=== PATIENT | male | born 1950 | race Caucasian/White ===

== ENCOUNTER 2016-09-08 10:55 | Emergency (ER) | payer BC ==
[2016-09-08 12:10] VITALS: BP 160/95
--- NOTE | 2016-09-08 12:53 | RAD ---
HISTORY: Trauma, left wrist pain, fall on outstretched hand COMPARISONS: None VIEWS: 3, Frontal, lateral, and oblique views of the left wrist FINDINGS: BONE DENSITY: Normal. BONES: There is a transverse fracture of the distal radial metaphysis with dorsal angulation of approximately 40 degrees. JOINTS: There is no arthropathy. ALIGNMENT: There is no dislocation. SOFT TISSUES: Unremarkable. OTHER FINDINGS: None. IMPRESSION: DORSAL ANGULATED FRACTURE OF THE DISTAL RADIAL METAPHYSIS
--- NOTE | 2016-09-08 12:58 | UC ---
Hand/Wrist HPI - HPI Summary HPI Summary: FOOSH on the ice approx 1.5 hours ago, immediate pain and deformity in L wrist. Hx of fx with surgery in R wrist. 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 - History Of Current Complaint Chief Complaint: UCUpperExtremity Stated Complaint: LEFT WRIST INJURY- Time Seen by Provider: 09/08/16 12:14 Hx Obtained From: Patient ?: No Onset/Duration: Sudden Onset Severity Initially: Moderate Severity Currently: Moderate Pain Intensity: 7 Character Of Pain: Dull, Throbbing Aggravating Factor(s): Movement Alleviating: Rest, Elevation Associated Signs And Symptoms: Positive: Swelling Related History: Dominant Hand Right - Allergies/Home Medications Allergies/Adverse Reactions: Allergies Allergy/AdvReac Type Severity Reaction Status Date / Time No Known Allergies Allergy Verified 06/04/13 16:18 Home Medications: Home Medications Metoprolol Succinate XL TAB* [Toprol XL TAB*] 09/08/16 [History] PMH/Surg Hx/FS Hx/Imm Hx Endocrine History Of: Denies: Diabetes, Thyroid Disease Cardiovascular History Of: Reports: Cardiac Disorders, Hypertension Respiratory History Of: Denies: COPD, Asthma GI/ History Of: Denies: Ulcer - Surgical History Surgical History: Yes Surgery Procedure, Year, and Place: tonsilectomy - Family History Known Family History: Negative: Blood Disorder - Social History Lives: With Family Alcohol Use: Rare Substance Use Type: None Smoking Status (MU): Never Smoked Tobacco - Immunization History Most Recent Tetanus Shot: less then 7 yrs Review of Systems Constitutional: Negative Skin: Negative Eyes: Negative ENT: Negative Respiratory: Negative Cardiovascular: Negative Gastrointestinal: Negative Genitourinary: Negative Motor: Negative Neurovascular: Negative Musculoskeletal: Arthralgia, Decreased ROM - L wrist, Edema Neurological: Negative Psychological: Negative All Other Systems Reviewed And Are Negative: Yes Physical Exam Triage Information Reviewed: Yes Appearance: Well-Appearing, No Pain Distress, Well-Nourished Vital Signs: Initial Vital Signs Temp 97.7 F 09/08/16 12:05 Pulse 81 09/08/16 12:05 Resp 16 09/08/16 12:05 BP 160/95 09/08/16 12:05 Pulse Ox 95 09/08/16 12:05 Vital Signs Reviewed: Yes Eye Exam: Normal Eyes: Positive: Conjunctiva Clear ENT Exam: Normal ENT: Positive: Normal ENT inspection, Hearing grossly normal, Pharynx normal, TMs normal Dental Exam: Normal Neck exam: Normal Neck: Positive: Supple, Nontender, No Lymphadenopathy Respiratory Exam: Normal Respiratory: Positive: Chest non-tender, Lungs clear, Normal breath sounds, No respiratory distress, No accessory muscle use Cardiovascular Exam: Normal Cardiovascular: Positive: RRR, No Murmur Musculoskeletal Exam: Other - swelling, tenderness at L distal radius Musculoskeletal: Positive: ROM Limited @ - L wrist Psychological Exam: Normal Skin Exam: Normal Hand/Wrist Course/Dx - Differential Dx/Diagnosis Provider Diagnoses: L distal radius fracture with dorsal angulation - Physician Notifications Discussed Patient Care With: EMELYN Davenport at [facility]. [id number]: can send to office now Instructed by Provider To: Send To Office Now Discharge - Discharge Plan Condition: Stable Disposition: HOME Patient Education Materials: Wrist Fracture in Adults (ED) Referrals: Roger Jones MD [Medical Doctor] - Additional Instructions: Please go follow up with Dr. Jones now at [address] [place] [address].
== END 2016-09-08 13:27 | disposition home or self-care (01) ==
LOC: UCEAST 10:55
DX: S52.502A Unspecified fracture of the lower end of left radius, initial encounter for closed fracture (principal); W00.0XXA Fall on same level due to ice and snow, initial encounter; Y93.9 Activity, unspecified; Y92.9 Unspecified place or not applicable
CPT/HCPCS: 99213; G0463

== ENCOUNTER → 2016-09-14 | Day surgery (SDC) | payer BC ==
[~2016-09-14] MED LIST: Acetaminophen TAB* 325 MG PO PRN; Buffered Lidocaine 1% SYR 3ML* 3 ML/SYR SYRINGE INTRADERM ONE; Buffered Lidocaine 1% SYR 3ML* 3 ML/SYR SYRINGE ONE; Bupivacaine 0.25% SDV* 30 ML ONE; Dexamethasone IV* 4 MG/ML 1 ML (4 MG) ONE; DiMENhydriNATE IV* 50 MG/ML VIAL IV PUSH PRN; Famotidine IV* 10 MG/ML 2 ML (20 mg) ONE; HYDROcodone/ACETAMIN 5-325 MG* 1 TAB ONE; HYDROcodone/ACETAMIN 5-325 MG* 1 TAB PO PRN; HYDROmorphone INJ* 1 MG/ML CARPUJECT SYRINGE ONE; Ketorolac INJ* 30 MG/ML 1 ML VIAL ONE; Lidocaine 2% PF * 5 ML VIAL ONE; Midazolam* 1 MG/ML 2 ML VIAL (2 MG) ONE; Ondansetron INJ* 2 MG/ML VIAL IV PRN; PROCHLORPERAZINE INJ 5 MG/ML 2 ML VIAL IV PRN; Propofol* 10 MG/ML 20 ML BTL IV PUSH ONE; ceFAZolin 2 GM PREMIX (*) 2 GM/50 ML BAG IVPB ONE; fentaNYL* 50 MCG/ML 2 ML VIAL (100 MCG VIAL) IV PRN; fentaNYL* 50 MCG/ML 2 ML VIAL (100 MCG VIAL) ONE
[2016-09-14 12:36] VITALS: BP 153/100
--- NOTE | 2016-09-16 12:02 | RAD ---
INDICATION: Left wrist fracture, trauma, ORIF COMPARISONS: September 08, 2016 TECHNIQUE: Fluoroscopy was provided for a surgical procedure. Total fluoroscopy time is: 28 seconds FINDINGS: Spot images demonstrate internal fixation of the distal radius IMPRESSION: FLUOROSCOPY WAS PROVIDED FOR A SURGICAL PROCEDURE CPT II Codes: 6045F
--- NOTE | 2016-09-17 06:47 | OP ---
DATE OF OPERATION: 09/14/16 - [facility] DATE OF : 52 SURGEON: Roger Jones MD PROFESSOR OF ENVIRONMENTAL STUDIES: SADA Ricks ANESTHESIOLOGIST: Dr. Diaz. ANESTHESIA: General LMA. PRE-OP DIAGNOSIS: Left intraarticular, 3-fragment distal radius fracture. POST-OP DIAGNOSIS: Left intraarticular, 3-fragment distal radius fracture. OPERATIVE PROCEDURE: Open reduction and internal fixation of left distal radius intraarticular, 3-fragment distal radius fracture. INDICATIONS: Carson had a slip and fall on the ice. Fracture was very displaced and we talked about risks and benefits. He elected to proceed with surgery. EBL: 5 ml. COMPLICATIONS: None. FINDINGS: Radial styloid fragment and also a dorsal ulnar fragment in addition to the main articular fragment. DESCRIPTION OF PROCEDURE: Carson was seen in the preoperative holding area and the correct side and site were marked. We came back to the operating room where anesthesia was induced. The arm was prepped and draped in the usual fashion. Formal time-out was performed. A longitudinal incision was made over the FCR tendon. Dissection was carried down to the sheath, which was incised longitudinally. The FCR tendon was retracted ulnarly and the subsheath was incised along its entirety. The soft tissue interval between the FPL and the radial artery was then developed and the FPL was retracted ulnarly to expose the pronator quadratus. This was incised along its radial margin and then reflected back ulnarly via transverse incision preserving about the last 2 or 3 mm of the volar extrinsic radiocarpal ligaments. The pronator was retracted ulnarly. The fracture site was encountered and cleaned. At this point, I went ahead and placed the arm in 10 pounds of longitudinal traction. Closed reduction maneuver was performed. The radial styloid pin was placed to help with provisional reduction. Upon fluoroscopy, things looked good. At this point, I went ahead and brought in my plate. The plate was positioned and position of the plate was checked via fluoroscopy. The plate was pinned in position and left proud of the proximal aspect of the radius about 4 or 5 mm. With the plate pinned, I went ahead and secured the plate distally by filling the distal row of screws with Synthes Variable angle 2.4-mm locking screws. Once these were placed, I went ahead and removed the pins and then brought the plate down to bone proximally and clamped in place with a lobster claw clamp. I then went ahead and checked everything on fluoroscopy. Everything looked very nice. I then drilled and placed three 2.4-mm cortical screws proximally. The wound was then irrigated and fluoroscopic images were taken and saved. The pronator was closed with some 3- 0 Polysorb suture. The subcutaneous tissue was reapproximated with some 3-0 Polysorb suture. The skin was closed with a 4-0 running subcuticular Monocryl suture. The wound was dressed with Steri-Strips, Xeroform, sterile dressings, and then a cock-up plaster wrist splint was applied. He was then woken back up and taken to the recovery room in stable condition. The tourniquet had been inflated prior to making skin incision and was deflated after the splint was in place. [id number]/CPS #: [id number] MTDD
== END | disposition home or self-care (01) ==
LOC: OREAST 08:21
PROVIDERS: ATTEND Orthopaedic Surgery Hand Surgery
DX: S52.572A Other intraarticular fracture of lower end of left radius, initial encounter for closed fracture (principal); Z87.891 Personal history of nicotine dependence; J45.909 Unspecified asthma, uncomplicated; W00.0XXA Fall on same level due to ice and snow, initial encounter; Y92.480 Sidewalk as the place of occurrence of the external cause
CPT/HCPCS: C1713; C1776; J0690; J1100; J1170; J1885; J2250; J2704; J3010

== ENCOUNTER 2017-03-23 11:30 | Emergency (ER) | payer BC ==
--- NOTE | 2017-03-23 12:25 | UC ---
Back Pain HPI - HPI Summary HPI Summary: 66 y/o female presents to the urgent care c/o back spasm and shoulder pain since 03/02/2017. Pt states It all started with a sunburn 3 weeks ago while he was doing some outdoor work w/o a shirt on. Then the back spasm began and since then he is having difficulty sleeping. He has taking ibuprofen 400mg PO around the clock which has helped with the pain. However he noticed he has not drinking enough water he has been constipated for the past 4 days. Yesterday he had left side abdominal pain. this morning he drank prune juice and he was able to do a BM with difficulty. He states he has taking his BP medication today. Pt denies fever, SOB, chest pain, N/V/D. - History of Current Complaint Chief Complaint: UCGeneralIllness Stated Complaint: BACK PAIN AND SKIN ISSUE Time Seen by Provider: 03/23/17 11:54 Hx Obtained From: Patient Onset/Duration: Gradual Onset, Lasting Weeks, Still Present Timing: Constant, Lasting Weeks Severity Initially: Moderate Severity Currently: Moderate Pain Intensity: 2 Pain Scale Used: 0-10 Numeric Back Pain: Is Discrete @ - left side of his back w/ spasm Character: Spasmodic Aggravating: Movement, Lifting, Bending Alleviating: Rest Associated Signs And Symptoms: Positive: Negative. Negative: Fever, Weakness, Numbness, Tingling, Bladder Incontinence, Bowel Incontinence, Weight Loss - Risk Factors AAA Risk Factors: Negative TAD Risk Factors: Negative Cauda Equina Risk Factors: Negative Epidural Abscess Risk Factors: Negative - Allergies/Home Medications Allergies/Adverse Reactions: Allergies Allergy/AdvReac Type Severity Reaction Status Date / Time No Known Allergies Allergy Verified 03/23/17 11:40 Home Medications: Home Medications Aspirin TAB* [Aspirin 325 MG TAB*] 2 tab PO BID 03/23/17 [History Confirmed ] Ibuprofen [Advil] 400 mg PO Q6HR PRN 03/23/17 [History Confirmed 03/23/17] PMH/Surg Hx/FS Hx/Imm Hx Previously Healthy: Yes Cardiovascular History: Hypertension Respiratory History: Asthma Other Respiratory History: seasonal allergies - Surgical History Surgical History: Yes Surgery Procedure, Year, and Place: tonsilectomy. CLOSED REDUCTION RIGHT WRIST , 1990, [facility]. 2002, KIDNEY STONES, [facility]. Left Wrist Surgery - Family History Known Family History: Positive: Hypertension Negative: Blood Disorder - Social History Occupation: Retired Lives: With Family Alcohol Use: None Alcohol Amount: 1 Q 2 MONTHS Substance Use Type: None Smoking Status (MU): Former Smoker Amount Used/How Often: PACK A DAY Have You Smoked in the Last Year: No When Did the Patient Quit Smoking/Using Tobacco: QUIT AGE 26 - Immunization History Most Recent Tetanus Shot: less then 7 yrs Review of Systems Constitutional: Negative Skin: Other - LF shoulder with mild sunburn resolving Eyes: Negative ENT: Negative Respiratory: Negative Cardiovascular: Negative Gastrointestinal: Abdominal Pain - LLQ abdominal pain w/ constipation, Other - constipation Genitourinary: Negative Motor: Negative Neurovascular: Negative Musculoskeletal: Other: - lower back pain w/ left side back spasm Neurological: Negative Psychological: Negative All Other Systems Reviewed And Are Negative: Yes Physical Exam Triage Information Reviewed: Yes Appearance: Well-Appearing, No Pain Distress, Well-Nourished Vital Signs: Initial Vital Signs Temp 97.3 F 03/23/17 11:33 Pulse 95 03/23/17 11:33 Resp 18 03/23/17 11:33 BP 155/100 03/23/17 11:33 Pulse Ox 100 03/23/17 11:33 Vital Signs Reviewed: Yes Eye Exam: Normal Eyes: Positive: Conjunctiva Clear - PERRLA, EOMI fundi grossly normal ENT Exam: Normal ENT: Positive: Normal ENT inspection, Hearing grossly normal, Pharynx normal, TMs normal Dental Exam: Normal Neck exam: Normal Neck: Positive: Supple, Nontender, No Lymphadenopathy Respiratory Exam: Normal Respiratory: Positive: Chest non-tender, Lungs clear, Normal breath sounds. Negative: No respiratory distress Cardiovascular Exam: Normal Cardiovascular: Positive: RRR, No Murmur, Pulses Normal, Brisk Capillary Refill Abdominal Exam: Normal Abdomen Description: Positive: Nontender, No Organomegaly, Soft. Negative: CVA Tenderness (R), CVA Tenderness (L) Bowel Sounds: Positive: Present Musculoskeletal Exam: Normal Musculoskeletal: Positive: Strength Intact, ROM Intact, No Edema, Other: - BACK : Patient walked into the urgent care room with symmetric ambulation, No signs of limping, antalgic, able to bear weight. No signs of trauma, No masses palpated. No tenderness to palpation, No CVAT, no flank ecchymosis . No sacroiliac notch tenderness, No saddle anesthesia.FROM of back. Straight Leg Raise: negative. Patellar reflexes: brisk, symmetric Muscle strength lower extremities. Dorsiflexion/ plantar flexion of ankles. Heel/ toe walk. Lower extremities: Femoral, popliteal, posterior tibial, and dorsalis pedis pulses WNL. LF side back spasm of the paraspinal muscles at level of L2-L5 Back Pain Course/Dx - Course Course Of Treatment: 66 y/o female presents to the urgent care c/o back spasm and shoulder pain since 03/02/2017. Pt states It all started with a sunburn 3 weeks ago while he was doing some outdoor work w/o a shirt on. Then the back spasm began and since then he is having difficulty sleeping. He has taking ibuprofen 400mg PO around the clock which has helped with the pain. However he noticed he has not drinking enough water he has been constipated for the past 4 days. Yesterday he had left side abdominal pain. this morning he drank prune juice and he ws kamila to do a BM with difficulty. He states he has taking his BP medication today. Pt denies fever, SOB, chest pain, N/V/D. HX obtained. Pt with midl sunburn of the left shoulder resolving, Rx Caladryl topical cream. Pt with Back lefside back spasm. Rx Flexeril to allviate symptoms. Pt constipation for the past 4 days. Difficult BM today after taking Prune juice. Pt Rx Miralax PO until bowel movemtn normalized. Advised to increase fluid intake, increase fiber in his diet. If not improvemetn of symptom advised to f/u with his PCP or return to the urgent care. Pt BP elevated today 155/100. Advised to decrease salt in his diet and monitor BP and if it continues elevated to f/u with his PCP for further management. BP at D/C 130/90. Pt understood and agreed. Left the clinic ambulating. - Differential Dx/Diagnosis Differential Diagnosis/HQI/PQRI: Arthritis, Herniated Disc, Strain, Sprain - back spasm, constipation, Diverticulitis Provider Diagnoses: 1- Sunburn. 2-Back spasm. 3-Constipation. 4-Uncontrolled HTN Discharge - Discharge Plan Condition: Stable Disposition: HOME Prescriptions: Calamine/Pramoxine LOTION* [Caladryl LOTION*] 1 applic .SEE ORDER BID #1 btl Cyclobenzaprine TAB* [Flexeril 10 MG TAB*] 10 mg PO TID PRN #15 tab PRN Reason: Spasms - Back Polyethylene Glycol 3350* [Miralax*] 17 gm PO DAILY #1 btl Patient Education Materials: Constipation (ED), Muscle Spasm (ED), Low Sodium Diet (ED) Referrals: Jabari Mcqueen MD [Primary Care Provider] - 1 Week Additional Instructions: 1- Please take Medication as directed for back spasm. Medication can cause drowsiness, please avoid driving. 2-Take Miralax and directed until your bowel movement are normal, increase fluid intake, and fiber in your diet 3- Use the topical lotion to alleviate sunburn 4- Your BP is elevated to today, please decrease salt diet an monitor your BP at home, if it continues to be elevated please f/u with your PCP for further management.
[2017-03-23 12:50] VITALS: BP 130/90
== END 2017-03-23 12:45 | disposition home or self-care (01) ==
LOC: UCEAST 11:30
DX: M62.830 Muscle spasm of back (principal); L55.9 Sunburn, unspecified; K59.00 Constipation, unspecified; I10 Essential (primary) hypertension
CPT/HCPCS: 99212; G0463

== ENCOUNTER 2017-03-25 11:34 | Emergency (ER) | payer BC ==
[2017-03-25] MEDS ORDERED: Aspirin TAB* 325 MG PO ONE (11:51)
[2017-03-25 12:11] VITALS: BP 156/98
--- NOTE | 2017-03-25 12:16 | UC ---
Juan Davis Alfonso, scribed for Alia Camacho MD on 03/25/17 at 1157 . General HPI - HPI Summary HPI Summary: This patient is a 66 year old M presenting to [facility] accompanied by with a chief complaint of not being able to close his right eye since waking up at 0850. Symptoms aggravated by nothing. Symptoms alleviated by nothing. Patient reports R facial numbness, food falling out of R side of mouth, unable to close R eye this morning. No extremity weakness. Difficulty sleeping (one week), and abdominal cramping. PMHx of HTN. Patients medications reviewed this visit. Patients allergies reviewed this visit. - History of Current Complaint Stated Complaint: FACE NUMB CAN NOT CLOSE EYE Time Seen by Provider: 03/25/17 11:50 Hx Obtained From: Patient Onset/Duration: Sudden Onset, Lasting Hours - 0850, Still Present Timing: Constant Onset Severity: Moderate Current Severity: Moderate Aggravating: Nothing Alleviating: Nothing Associated Signs & Symptoms: Positive: Other - Patient reports facial numbness, food falling out of his mouth, difficulty sleeping (one week), and abdominal cramping. - Allergy/Home Medications Allergies/Adverse Reactions: Allergies Allergy/AdvReac Type Severity Reaction Status Date / Time No Known Allergies Allergy Verified 03/23/17 11:40 PMH/Surg Hx/FS Hx/Imm Hx Previously Healthy: No - see hpi. seen in [facility] Sunday 09/03 volume depletion and const Cardiovascular History: Hypertension - Surgical History Surgical History: Yes Surgery Procedure, Year, and Place: tonsilectomy. CLOSED REDUCTION RIGHT WRIST , 1990, [facility]. 2002, KIDNEY STONES, [facility]. Left Wrist Surgery - Family History Known Family History: Positive: Hypertension, Other - CVA father Negative: Blood Disorder - Social History Alcohol Use: None Alcohol Amount: 1 Q 2 MONTHS Substance Use Type: None Smoking Status (MU): Former Smoker Amount Used/How Often: PACK A DAY Have You Smoked in the Last Year: No When Did the Patient Quit Smoking/Using Tobacco: QUIT AGE 26 - Immunization History Most Recent Tetanus Shot: less then 7 yrs Review of Systems Constitutional: Fatigue Skin: Negative Eyes: Other - see hpi ENT: Other - see hpi Respiratory: Negative Cardiovascular: Negative Gastrointestinal: Abdominal Pain - recent cramping better now Genitourinary: Negative Motor: Other - see hpi Neurovascular: Other - see hpi Musculoskeletal: Other: - see hpi Neurological: Other - not being able to close his right eye, facial numbness, food falling out of his mouth, difficulty sleeping (one week) Psychological: Negative All Other Systems Reviewed And Are Negative: Yes Physical Exam Triage Information Reviewed: Yes Appearance: Well-Nourished Vital Signs Reviewed: Yes Eye Exam: Normal ENT Exam: Normal - see neuro ENT: Positive: Pharynx normal, TMs normal Neck exam: Normal Neck: Positive: Supple, Nontender, No Lymphadenopathy Respiratory Exam: Normal Respiratory: Positive: Chest non-tender, Lungs clear, Normal breath sounds, No respiratory distress, Other: - no dyspnea, no tachypnea, normal respiratory rate Cardiovascular Exam: Normal Cardiovascular: Positive: RRR, No Murmur, Pulses Normal, Brisk Capillary Refill , Other: - good general skin color, good capillary refill Abdominal Exam: Normal Abdomen Description: Positive: Nontender, Soft Bowel Sounds: Positive: Present Musculoskeletal Exam: Normal Musculoskeletal: Positive: Strength Intact Neurological Exam: Other - CN 1 - 12 intact - except R facial issues as below, incl + sens alcohol swab. No diplopia. DTR's 2+ equal BR / R Moves all ext's. Distal sens LT present x 4 ext's No gu/gi leakage. Gait steady upon arrival, but not detailed test. Strength upper and lower BLE 5/5. Distal sens LT present x 4 exts, incl + ax nerve. R facial droop, R eye difficulty closing, asymetric smile. Tongue protrudes ok R/L/straight. V1-3 sens LT present, but + dysesthetic subj. Psychological Exam: Normal Psychological: Positive: Age Appropriate Behavior Skin Exam: Normal - no visible or reported rash Diagnostics - EKG Cardiac Rate: Tachycardia - BPM 104 Cardiac Rhythm: Sinus: Normal - ID 169. QTc 455. Course/Dx - Course Course Of Treatment: Reviewed EKG, ok. Will transfer to ED via EMS, pt and express understanding and agreement. ASA 325mg po in CCC. D/w Dr. Pan ED. R facial droop, more c/w periph nerve etiology, but c/n completely exclude central. - Differential Dx - Multi-Symptom Provider Diagnoses: R facial droop Discharge - Discharge Plan Condition: Guarded Disposition: ADMITTED TO [facility] documentation as recorded by the Juan devlin Alfonso accurately reflects the service I personally performed and the decisions made by me, Alia Camacho MD.
== END 2017-03-25 12:13 | disposition short-term general hospital (02) ==
LOC: UCEAST 11:34
DX: R29.810 Facial weakness (principal); I10 Essential (primary) hypertension; Z87.891 Personal history of nicotine dependence
CPT/HCPCS: 99213; G0463

== ENCOUNTER 2017-03-25 12:24 | Emergency (ER) | payer BC ==
[2017-03-25 12:58] LABS: Hematocrit 46 % (42-52); Hemoglobin 15.9 g/dl (14.0-18.0); Mean Corpuscular HGB Conc 35 g/dl (31-36); Mean Corpuscular Hemoglobin 31 pg (27-31); Mean Corpuscular Volume 90 fL (80-94); Mean Platelet Volume 7 um3 (7.4-10.4); Red Blood Count 5.11 10^6/ul (4.0-5.4); Red Cell Distribution Width 13 % (10.5-15); White Blood Count 6.9 10^3/ul (3.5-10.8)
[2017-03-25 13:11] LABS: Urine Bacteria Absent (Absent); Urine Bilirubin Negative (Negative); Urine Glucose Negative (Negative); Urine Nitrite Negative (Negative)
[2017-03-25 13:11] LABS: Troponin I 0.01 ng/mL (<0.04)
[2017-03-25 13:17] LABS: ALT 24 U/L (7-52); Alkaline Phosphatase 94 U/L (34-104); BUN/Creatinine Ratio 17.2 (8-20); Blood Urea Nitrogen 16 mg/dL (6-24); CO2 Carbon Dioxide 26 mmol/L (22-32); Calcium 9.2 mg/dL (8.6-10.3); Chloride 95 mmol/L (101-111); EGFR African American 104.9 (>60); EGFR Non-African American 81.5 (>60); Globulin 3.5 g/dL (2-4); Glucose 96 mg/dL (70-100); Sodium 130 mmol/L (133-145); Total Protein 7.5 g/dL (6.4-8.9)
[2017-03-25 13:18] LABS: Anion Gap 9 mmol/L (2-11)
--- NOTE | 2017-03-25 13:42 | RAD ---
INDICATION: Right-sided droop COMPARISON: None TECHNIQUE: Noncontrast axial source images were acquired from the skull base to the vertex. FINDINGS: Ventricles/sulci: The ventricles and cisterns are normal in size and configuration for age. Brain parenchyma: There is no focal parenchymal finding, evidence of intracranial mass, or intracranial mass effect. Intracranial hemorrhage:None. Extra-axial spaces: There are no abnormal extra axial fluid collections or evidence of extra-axial mass. Calvarium: There is no calvarial fracture or other calvarial abnormality. Scalp: There is no evidence of scalp or extracalvarial soft tissue abnormality. Paranasal sinuses/mastoid: The paranasal sinuses and mastoid air cells are clear. Other: None. IMPRESSION: NEGATIVE EXAMINATION
[2017-03-25 15:28] VITALS: BP 135/95
--- NOTE | 2017-03-26 07:30 | ED ---
Nnamdi Davis Angela, scribed for Eron Pan MD on 03/25/17 at 1254 . Neurological HPI - HPI Summary HPI Summary: This pt is a 66 y/o male presenting [facility] c/o right sided facial droop since this morning at 0850. Pt reports that he was feeling "odd" last night and took his blood pressure that read 190/110, but notes that 1 hour after his BP reading he felt fine. He states that this morning as he went to sip some water at around 8:50 AM he felt his mouth asymmetric, he then stood up and felt a little dizzy and off-balance. Pt afterwards went to the bathroom to shave when he noticed an asymmetric smile and right eye unable to close like his left eye. Pt endorses constipation x1 week, decreased appetite, and distended abdomen. He notes his last bowel movement was 3 days ago. He denies pain, weakness, visual changes, slurred speech, headache, chest pain, palpitations, SOB. PMHx: hypertension. - History of Current Complaint Chief Complaint: EDNeurologicalDeficit Stated Complaint: FACE NUMB/CANT CLOSE EYE Time Seen by Provider: 03/25/17 12:37 Hx Obtained From: Patient Onset/Duration: Sudden Onset Timing: Constant Neurological Deficit Location: Facial - right-sided droop Character: Dizzy - now resolved, Other: - off-balance: now resolved Aggravating: Nothing Alleviating: Nothing Associated Signs and Symptoms: Positive: Dizziness - now resolved. Negative: Visual Changes, Weakness, Fever, Chest Pain, Palpitations - Allergy/Home Medications Allergies/Adverse Reactions: Allergies Allergy/AdvReac Type Severity Reaction Status Date / Time No Known Allergies Allergy Verified 03/25/17 12:34 PMH/Surg Hx/FS Hx/Imm Hx Endocrine/Hematology History: Denies: Hx Diabetes, Hx Thyroid Disease Cardiovascular History: Reports: Hx Hypertension - ON MEDS Denies: Other Cardiovascular Problems/Disorders Respiratory History: Reports: Hx Asthma - A TEEN, OK NOW Denies: Hx Chronic Obstructive Pulmonary Disease (COPD) GI History: Denies: Hx Ulcer, Other GI Disorders History: Reports: Hx Kidney Stones - 2002 AND 2015, Other Problems/ Disorders - HX ED, TAKES CIALIS Sensory History: Reports: Hx Contacts or Glasses - GLASSES, Hx Hearing Aid - [facility] Opthamlomology History: Reports: Hx Contacts or Glasses - GLASSES Neurological History: Reports: Hx Headaches - R/T HTN BEFORE MEDS - Surgical History Surgery Procedure, Year, and Place: tonsilectomy. CLOSED REDUCTION RIGHT WRIST , 1990, [facility]. 2002, KIDNEY STONES, [facility]. Left Wrist Surgery Hx Anesthesia Reactions: No Infectious Disease History: No Infectious Disease History: Denies: Hx Clostridium Difficile, Hx Hepatitis, Hx Human Immunodeficiency Virus (HIV), Hx of Known/Suspected MRSA, Hx Shingles, Hx Tuberculosis, History Other Infectious Disease, Traveled Outside the [place] in Last 30 Days - Family History Known Family History: Positive: Hypertension, Other - CVA father Negative: Blood Disorder - Social History Alcohol Use: None Alcohol Amount: 1 Q 2 MONTHS Substance Use Type: Reports: None Smoking Status (MU): Former Smoker Amount Used/How Often: PACK A DAY Have You Smoked in the Last Year: No Review of Systems Negative: Fever, Chills Positive: Other - Right eye droop. Negative: Blurred Vision Positive: Other - asymmetric smile Negative: Palpitations, Chest Pain Negative: Shortness Of Breath Positive: Other - Distended abdomen, constipation Neurological: Other - Dizziness: now resolved Negative: Headache, Weakness, Slurred Speech All Other Systems Reviewed And Are Negative: Yes Physical Exam Triage Information Reviewed: Yes Vital Signs On Initial Exam: Initial Vitals Temp Pulse Resp BP Pulse Ox 98.6 F 95 16 140/105 98 03/25/17 12:31 03/25/17 12:31 03/25/17 12:31 03/25/17 12:31 03/25/17 12:31 Vital Signs Reviewed: Yes Appearance: Positive: Well-Appearing Skin: Positive: Warm, Skin Color Reflects Adequate Perfusion, Dry Head/Face: Positive: Normal Head/Face Inspection Eyes: Positive: Normal ENT: Positive: Normal ENT inspection Neck: Positive: Supple, Nontender Respiratory/Lung Sounds: Positive: Clear to Auscultation, Breath Sounds Present Cardiovascular: Positive: RRR Musculoskeletal: Positive: Normal Neurological: Positive: Alert, Oriented to Person Place, Time, Facial Droop - right-sided, Other - Weak forehead Psychiatric: Positive: Normal, Affect/Mood Appropriate - [place] Coma Scale Coma Scale Total: 15 Diagnostics - Vital Signs Vital Signs Temp Pulse Resp BP Pulse Ox 03/25/17 12:31 98.6 F 95 16 140/105 98 - Laboratory Lab Results: Lab Results 03/25/17 03/25/17 03/25/17 Range/Units 12:08 12:08 12:08 WBC 6.9 (3.5-10.8) 10^3/ul RBC 5.11 (4.0-5.4) 10^6/ul Hgb 15.9 (14.0-18.0) g/dl Hct 46 (42-52) % MCV 90 (80-94) fL MCH 31 (27-31) pg MCHC 35 (31-36) g/dl RDW 13 (10.5-15) % Plt Count 270 (150-450) 10^3/ul MPV 7 L (7.4-10.4) um3 Neut % (Auto) 81.8 (38-83) % Lymph % (Auto) 9.8 L (25-47) % [facility] % (Auto) 6.3 (1-9) % Eos % (Auto) 1.1 (0-6) % Baso % (Auto) 1.0 (0-2) % Absolute Neuts (auto) 5.7 (1.5-7.7) 10^3/ul Absolute Lymphs (auto) 0.7 L (1.0-4.8) 10^3/ul Absolute Monos (auto) 0.4 (0-0.8) 10^3/ul Absolute Eos (auto) 0.1 (0-0.6) 10^3/ul Absolute Basos (auto) 0.1 (0-0.2) 10^3/ul Absolute Nucleated RBC 0 10^3/ul Nucleated RBC % 0 INR (Anticoag Therapy) 0.98 (0.89-1.11) Sodium 130 L (133-145) mmol/L Potassium TNP Chloride 95 L (101-111) mmol/L Carbon Dioxide 26 (22-32) mmol/L Anion Gap 9 (2-11) mmol/L BUN 16 (6-24) mg/dL Creatinine 0.93 (0.67-1.17) mg/dL Est GFR ( Amer) 104.9 (>60) Est GFR (Non-Af Amer) 81.5 (>60) BUN/Creatinine Ratio 17.2 (8-20) Glucose 96 (70-100) mg/dL Lactic Acid (0.5-2.0) mmol/L Calcium 9.2 (8.6-10.3) mg/dL Total Bilirubin 0.60 (0.2-1.0) mg/dL AST TNP ALT 24 (7-52) U/L Alkaline Phosphatase 94 (34-104) U/L Troponin I 0.01 (<0.04) ng/mL Total Protein 7.5 (6.4-8.9) g/dL Albumin 4.0 (3.2-5.2) g/dL Globulin 3.5 (2-4) g/dL Albumin/Globulin Ratio 1.1 (1-3) TSH (0.34-5.60) mcIU/mL Urine Color Urine Appearance Urine pH (5-9) Ur Specific [place] (1.010-1.030) Urine Protein (Negative) Urine Ketones (Negative) Urine Blood (Negative) Urine Nitrate (Negative) Urine Bilirubin (Negative) Urine Urobilinogen (Negative) Ur Leukocyte Esterase (Negative) Urine WBC (Auto) (Absent) Urine RBC (Auto) (Absent) Ur Squamous Epith Cells (Absent) Urine Bacteria (Absent) Urine Glucose (Negative) Urine Ascorbic Acid (Negative) 03/25/17 03/25/17 03/25/17 Range/Units 12:08 12:45 13:47 WBC (3.5-10.8) 10^3/ul RBC (4.0-5.4) 10^6/ul Hgb (14.0-18.0) g/dl Hct (42-52) % MCV (80-94) fL MCH (27-31) pg MCHC (31-36) g/dl RDW (10.5-15) % Plt Count (150-450) 10^3/ul MPV (7.4-10.4) um3 Neut % (Auto) (38-83) % Lymph % (Auto) (25-47) % [facility] % (Auto) (1-9) % Eos % (Auto) (0-6) % Baso % (Auto) (0-2) % Absolute Neuts (auto) (1.5-7.7) 10^3/ul Absolute Lymphs (auto) (1.0-4.8) 10^3/ul Absolute Monos (auto) (0-0.8) 10^3/ul Absolute Eos (auto) (0-0.6) 10^3/ul Absolute Basos (auto) (0-0.2) 10^3/ul Absolute Nucleated RBC 10^3/ul Nucleated RBC % INR (Anticoag Therapy) (0.89-1.11) Sodium (133-145) mmol/L Potassium 3.8 Chloride (101-111) mmol/L Carbon Dioxide (22-32) mmol/L Anion Gap (2-11) mmol/L BUN (6-24) mg/dL Creatinine (0.67-1.17) mg/dL Est GFR ( Amer) (>60) Est GFR (Non-Af Amer) (>60) BUN/Creatinine Ratio (8-20) Glucose (70-100) mg/dL Lactic Acid 1.6 (0.5-2.0) mmol/L Calcium (8.6-10.3) mg/dL Total Bilirubin (0.2-1.0) mg/dL AST 22 ALT (7-52) U/L Alkaline Phosphatase (34-104) U/L Troponin I (<0.04) ng/mL Total Protein (6.4-8.9) g/dL Albumin (3.2-5.2) g/dL Globulin (2-4) g/dL Albumin/Globulin Ratio (1-3) TSH (0.34-5.60) mcIU/mL Urine Color Yellow Urine Appearance Clear Urine pH 7.0 (5-9) Ur Specific [place] 1.010 (1.010-1.030) Urine Protein Negative (Negative) Urine Ketones Negative (Negative) Urine Blood Negative (Negative) Urine Nitrate Negative (Negative) Urine Bilirubin Negative (Negative) Urine Urobilinogen Negative (Negative) Ur Leukocyte Esterase Trace H (Negative) Urine WBC (Auto) Trace(0-5/hpf) (Absent) Urine RBC (Auto) Trace(0-2/hpf) (Absent) Ur Squamous Epith Cells Present H (Absent) Urine Bacteria Absent (Absent) Urine Glucose Negative (Negative) Urine Ascorbic Acid * H (Negative) 03/25/17 Range/Units 14:23 WBC (3.5-10.8) 10^3/ul RBC (4.0-5.4) 10^6/ul Hgb (14.0-18.0) g/dl Hct (42-52) % MCV (80-94) fL MCH (27-31) pg MCHC (31-36) g/dl RDW (10.5-15) % Plt Count (150-450) 10^3/ul MPV (7.4-10.4) um3 Neut % (Auto) (38-83) % Lymph % (Auto) (25-47) % [facility] % (Auto) (1-9) % Eos % (Auto) (0-6) % Baso % (Auto) (0-2) % Absolute Neuts (auto) (1.5-7.7) 10^3/ul Absolute Lymphs (auto) (1.0-4.8) 10^3/ul Absolute Monos (auto) (0-0.8) 10^3/ul Absolute Eos (auto) (0-0.6) 10^3/ul Absolute Basos (auto) (0-0.2) 10^3/ul Absolute Nucleated RBC 10^3/ul Nucleated RBC % INR (Anticoag Therapy) (0.89-1.11) Sodium (133-145) mmol/L Potassium Chloride (101-111) mmol/L Carbon Dioxide (22-32) mmol/L Anion Gap (2-11) mmol/L BUN (6-24) mg/dL Creatinine (0.67-1.17) mg/dL Est GFR ( Amer) (>60) Est GFR (Non-Af Amer) (>60) BUN/Creatinine Ratio (8-20) Glucose (70-100) mg/dL Lactic Acid (0.5-2.0) mmol/L Calcium (8.6-10.3) mg/dL Total Bilirubin (0.2-1.0) mg/dL AST ALT (7-52) U/L Alkaline Phosphatase (34-104) U/L Troponin I (<0.04) ng/mL Total Protein (6.4-8.9) g/dL Albumin (3.2-5.2) g/dL Globulin (2-4) g/dL Albumin/Globulin Ratio (1-3) TSH 1.83 (0.34-5.60) mcIU/mL Urine Color Urine Appearance Urine pH (5-9) Ur Specific [place] (1.010-1.030) Urine Protein (Negative) Urine Ketones (Negative) Urine Blood (Negative) Urine Nitrate (Negative) Urine Bilirubin (Negative) Urine Urobilinogen (Negative) Ur Leukocyte Esterase (Negative) Urine WBC (Auto) (Absent) Urine RBC (Auto) (Absent) Ur Squamous Epith Cells (Absent) Urine Bacteria (Absent) Urine Glucose (Negative) Urine Ascorbic Acid (Negative) Result Diagrams: 03/25/17 12:08 03/25/17 13:47 Lab Statement: Any lab studies that have been ordered have been reviewed, and results considered in the medical decision making process. - CT Brain CT CT Interpretation: No Acute Changes - IMPRESSION: Negative examination. ED physician has reviewed this radiology report and agrees. CT Interpretation Completed By: Radiologist - EKG 12:50 Cardiac Rate: Tachycardia EKG Rhythm: Sinus Rhythm NIH Scale - NIH Scale NIH Stroke Scale Comment: NIH Stroke Scale = 1 Re-Evaluation - Re-Evaluation First Eval Re-Evaluation Time: 15:03 Comment: Updated pt with CT brain results. Course/Dx - Course Course Of Treatment: Mr. Avendano presented with weakness of the right side of his face starting this AM. His forehead although still moving, is also affected. His W/U here is negative and he will be treated for a Young's. - Diagnoses Provider Diagnoses: Young's palsy Discharge - Discharge Plan Condition: Stable Disposition: HOME Prescriptions: ValACYclovir (*) [Valtrex 1 GM(*)] 1 gm PO TID #21 tab predniSONE TAB* [Deltasone TAB*] 10 mg PO DAILY #15 tab predniSONE TAB* [Deltasone TAB*] 60 mg PO DAILY #5 tab Patient Education Materials: Young Palsy (ED) Referrals: Jabari Mcqueen MD [Primary Care Provider] - Additional Instructions: Your blood pressure was elevated during today's visit. Please follow up with your primary care provider. The documentation as recorded by the Nnamdi devlin Angela accurately reflects the service I personally performed and the decisions made by me, Eron Pan MD.
== END 2017-03-25 15:26 | disposition home or self-care (01) ==
LOC: ED 12:24
DX: G51.0 Bell's palsy (principal); R42 Dizziness and giddiness; Z87.891 Personal history of nicotine dependence
CPT/HCPCS: 36415; 70450; 80053; 81003; 81015; 83605; 84443; 84484; 85025; 85610; 87086; 93005; 99283

== ENCOUNTER 2017-04-05 06:21 | Inpatient (IN) | payer BC ==
[2017-04-05] MEDS ORDERED: NS 0.9% 1000 ML* 1,000 ML IV ONE (07:20)
[2017-04-05 07:39] LABS: Hematocrit 45 % (42-52); Hemoglobin 15.4 g/dl (14.0-18.0); Mean Corpuscular HGB Conc 34 g/dl (31-36); Mean Corpuscular Hemoglobin 31 pg (27-31); Mean Corpuscular Volume 91 fL (80-94); Mean Platelet Volume 7 um3 (7.4-10.4); Red Blood Count 4.92 10^6/ul (4.0-5.4); Red Cell Distribution Width 13 % (10.5-15); White Blood Count 10.7 10^3/ul (3.5-10.8)
[2017-04-05 07:54] LABS: Albumin 3.5 g/dL (3.2-5.2); C Reactive Protein 20.95 mg/L (< 5.00); Calcium 8.6 mg/dL (8.6-10.3); EGFR African American 92.2 (>60); EGFR Non-African American 71.7 (>60); Globulin 3.1 g/dL (2-4); Magnesium 2.2 mg/dL (1.9-2.7); Potassium 3.7 mmol/L (3.5-5.0); Total Bilirubin 0.8 mg/dL (0.2-1.0); Total Protein 6.6 g/dL (6.4-8.9)
[2017-04-05 08:04] LABS: Urine Bacteria Absent (Absent); Urine Bilirubin Negative (Negative); Urine Glucose Negative (Negative); Urine Nitrite Negative (Negative)
--- NOTE | 2017-04-05 08:21 | RAD ---
Indication: 1 month LEFT lower quadrant abdominal pain with worsening. Comparison: August 21, 2012 Technique: Upright AP 0734 hours Report: Clear lungs and pleural spaces. Negative for cardiomegaly. Unremarkable central pulmonary vasculature. Mildly tortuous descending thoracic aorta. Negative for free air beneath the diaphragm. IMPRESSION: No evidence for acute intrathoracic disease.
[2017-04-05] MEDS ORDERED: Iohexol 300* (CONTRAST) 10 ML SDV IV ONE (09:20)
--- NOTE | 2017-04-05 09:54 | RAD ---
INDICATION: Abdominal pain for one month. Concern for diverticulitis. Constipation. History of urolithiasis. COMPARISON: No relevant prior exams available on the [facility] PACS for comparison. TECHNIQUE: Multidetector CT images were obtained from the lung bases to the ischial tuberosities with 121 mL Omnipaque 300 IV and oral contrast. Multiplanar reformation. REPORT: The visualized lung bases are remarkable for mild subsegmental atelectasis. The liver, gallbladder, pancreas, and spleen are unremarkable. Negative for CT abnormality of the upper GI, small bowel, or appendix visualized posterior and lateral to the cecum reference axial images 36-40 of 104. Enteric contrast extends to the transverse colon. Redundant sigmoid colon is fluid distended without significant dilatation or appreciable mural thickening or perienteric inflammatory change. Negative for diverticulosis. Negative for ascites or free air. Small fat-containing umbilical hernia without inflammatory change. Normal adrenal glands. Symmetric nephrograms and pyelograms. Few tiny probable renal cortical cysts. No suspicious focal renal lesions or hydronephrosis. Unremarkable ureters. Small amount of gas in the urinary bladder. No visualized mural thickening of the urinary bladder. Mild prominence of the prostate. Symmetric seminal vesicles. Vasectomy clips. Negative for lymphadenopathy. Mild atherosclerotic plaque of normal diameter abdominal aorta and iliac arteries. Physiologic distention of the IVC. Lumbar sacral spine degenerative spondylosis and facet joint osteoarthritis. At L1-L2 there is severe disc space narrowing and a chronic appearing large dorsal disc osteophyte complex which results in moderately severe acquired central canal and LEFT lateral recess stenosis. Less marked spinal stenosis at the more caudal levels. Mild chronic anterior wedge deformity of the L1 vertebral body. No acute or subacute fracture evident. IMPRESSION: 1. Redundant sigmoid colon is fluid distended without significant dilatation or appreciable mural thickening or perienteric inflammatory change. Negative for diverticulosis. 2. Normal appendix documented. 3. Negative for obstructive uropathy. 4. Lumbar sacral spine degenerative spondylosis and facet joint osteoarthritis. At L1-L2 there is severe disc space narrowing and a chronic appearing large dorsal disc osteophyte complex which results in moderately severe acquired central canal and LEFT lateral recess stenosis. Less marked spinal stenosis at the more caudal levels.
[2017-04-05] MEDS ORDERED: Levofloxacin 750 MG IVPREMIX(* 750 MG/150 ML BAG IVPB ONE (10:46)
--- NOTE | 2017-04-05 10:46 | ED ---
Nnamdi Davis Angela, scribed for Crow Roberts on 04/05/17 at 0724 . Abdominal Pain/Male - HPI Summary HPI Summary: This pt is a 66 y/o male presenting [facility] c/o intermittent waxing and waning abd pain x1 month. He describes his pain as a painful pressure in the LUQ, rated as 6-8 out of 10, currently his pain is a 6 out of 10 in severity. Pt notes he has not been able to have a normal bowel movement for 1 month. Pt reports he is able to pass gas but is unable to sleep due to constipation. He states he pulled a muscle 1 month ago and could not sleep secondary to pain. Pt was stressed and dehydrated, with decreased PO intake for the past month. He went to [facility] on 03/23/17 and was prescribed Miralax and reports he had watery diarrhea. Pt denies weight loss, vomiting, nausea, chest pain, SOB, fever, black stools, bloody stools, hematuria, urinary symptoms. He is concerned for a bowel obstruction. He denies drinking alcohol and using tobacco. His last colonoscopy was 4 years ago. PMHx: HTN, Young's Palsy (03/25/17) . - History of Current Complaint Chief Complaint: EDAbdPain Stated Complaint: ABD PAIN/ CONSTIPATED Time Seen by Provider: 04/05/17 07:06 Hx Obtained From: Patient Onset/Duration: Lasting Weeks Timing: Intermittent Pain Intensity: 7 Pain Scale Used: 0-10 Numeric Location: Discrete At: LUQ Associated Signs And Symptoms: Positive: Constipation, Decreased Appetite. Negative: Fever, Chest Pain, Blood in Stool, Urinary Symptoms, Nausea, Vomiting - Allergies/Home Medications Allergies/Adverse Reactions: Allergies Allergy/AdvReac Type Severity Reaction Status Date / Time No Known Allergies Allergy Verified 03/25/17 12:34 PMH/Surg Hx/FS Hx/Imm Hx Endocrine/Hematology History: Denies: Hx Diabetes, Hx Thyroid Disease Cardiovascular History: Reports: Hx Hypertension - ON MEDS Denies: Other Cardiovascular Problems/Disorders Respiratory History: Reports: Hx Asthma - A TEEN, OK NOW Denies: Hx Chronic Obstructive Pulmonary Disease (COPD) GI History: Denies: Hx Ulcer, Other GI Disorders History: Reports: Hx Kidney Stones - 2002 AND 2014, Other Problems/ Disorders - HX ED, TAKES CIALIS Sensory History: Reports: Hx Contacts or Glasses - GLASSES, Hx Hearing Aid - [facility] Opthamlomology History: Reports: Hx Contacts or Glasses - GLASSES Neurological History: Reports: Hx Headaches - R/T HTN BEFORE MEDS - Surgical History Surgery Procedure, Year, and Place: tonsilectomy. CLOSED REDUCTION RIGHT WRIST , 1990, [facility]. 2002, KIDNEY STONES, [facility]. Left Wrist Surgery Hx Anesthesia Reactions: No Infectious Disease History: No Infectious Disease History: Denies: Hx Clostridium Difficile, Hx Hepatitis, Hx Human Immunodeficiency Virus (HIV), Hx of Known/Suspected MRSA, Hx Shingles, Hx Tuberculosis, History Other Infectious Disease, Traveled Outside the [place] in Last 30 Days - Family History Known Family History: Positive: Hypertension, Other - CVA father Negative: Blood Disorder - Social History Alcohol Use: Rare Alcohol Amount: 1 Q 2 MONTHS Substance Use Type: Reports: None Smoking Status (MU): Former Smoker Amount Used/How Often: PACK A DAY Have You Smoked in the Last Year: No Review of Systems Negative: Fever, Chills Negative: Chest Pain Negative: Shortness Of Breath Gastrointestinal: Negative - black stools, bloody stools Positive: Abdominal Pain, Other - POSITIVE: constipation. Negative: Vomiting, Nausea Negative: hematuria Musculoskeletal: Negative Skin: Negative Negative: Headache, Weakness All Other Systems Reviewed And Are Negative: Yes Physical Exam Triage Information Reviewed: Yes Vital Signs On Initial Exam: Initial Vitals Temp Pulse Resp BP Pulse Ox 96.9 F 106 18 146/93 98 04/05/17 06:23 04/05/17 06:23 04/05/17 06:23 04/05/17 06:23 04/05/17 06:23 Vital Signs Reviewed: Yes Appearance: Positive: Well-Appearing, No Pain Distress Skin: Positive: Warm, Skin Color Reflects Adequate Perfusion, Dry Head/Face: Positive: Normal Head/Face Inspection Eyes: Positive: EOMI, REINIER ENT: Positive: Normal ENT inspection Neck: Positive: Supple, Nontender Respiratory/Lung Sounds: Positive: Clear to Auscultation, Breath Sounds Present Cardiovascular: Positive: RRR, Pulses are Symmetrical in both Upper and Lower Extremities Abdomen Description: Positive: Soft, Other: - There is mild tenderness in the LUQ. Bowel Sounds: Positive: Present Musculoskeletal: Positive: Normal, Strength/ROM Intact Neurological: Positive: Normal, Sensory/Motor Intact, Alert, Oriented to Person Place, Time - [place] Coma Scale Coma Scale Total: 15 Diagnostics - Vital Signs Vital Signs Temp Pulse Resp BP Pulse Ox 04/05/17 07:00 90 18 128/89 96 04/05/17 06:56 90 96 04/05/17 06:55 133/95 04/05/17 06:23 96.9 F 106 18 146/93 98 - Laboratory Result Diagrams: 04/05/17 07:30 04/05/17 07:30 Lab Statement: Any lab studies that have been ordered have been reviewed, and results considered in the medical decision making process. - Radiology Chest XR Xray Interpretation: No Acute Changes - IMPRESSION: No evidence or acute intrathoracic disease. ED physician has reviewed this radiology report and agrees. Radiology Interpretation Completed By: Radiologist - CT Abdomen/Pelvis CT CT Interpretation: Positive (See Comments) - IMPRESSION: 1. Redundant sigmoid colon is fluid distended without significant dilatation or appreciable mural thickening or perienteric inflammatory change. Negative for diverticulosis. 2. Normal appendix documented. 3. Negative for obstructive uropathy. 4. Lumbar sacral spine degenerative spondylosis and facet joint osteoarthritis. At L1-L2 there is severe disc space narrowing and a chornic appearing large dorsal disc osteophyte complex which results in moderately severe acquired central canal and LEFT lateral recess stenosis. Less marked spinal stenosis at the more caudal levels. ED physician has reviewed this radiology report and agrees. CT Interpretation Completed By: Radiologist - EKG 0752 Cardiac Rate: NL - 90 bpm EKG Rhythm: Sinus Rhythm EKG Interpretation: No acute changes Re-Evaluation - Re-Evaluation First Eval Re-Evaluation Time: 10:17 Comment: I reviewed the results with the pt. Abdominal Pain Fem Course/Dx - Course Assessment/Plan: This pt is a 66 y/o male presenting to [facility] c/o intermittent waxing and waning abd pain x1 month. He describes his pain as a painful pressure in the LUQ, rated as 6-8 out of 10, currently his pain is a 6 out of 10 in severity. Pt notes he has not been able to have a normal bowel movement for a 1 month but is able to pass gas. Elevated BP noted with a dx of hypertension. Bloodwork, CT abd/pelv, and chest XR were obtained. Pt will be admitted to [facility] by Dr. Hyatt. - Diagnoses Provider Diagnoses: Abdominal pain, Constipation - Provider Notifications Discussed Care Of Patient With: Haja Horvath Time Discussed With Above Provider: 10:23 Instructed by Provider To: Other - I discussed the pt's case with Dr. Horvath, hospital director. He recommends admission. 10:30 - I spoke with Dr. Hyatt ( hospitalist), who will admit the pt. Discharge - Discharge Plan Condition: Stable Disposition: ADMITTED TO [facility] Referrals: Jabari Mcqueen MD [Primary Care Provider] - The documentation as recorded by the Nnamdi devlin Angela accurately reflects the service I personally performed and the decisions made by , Crow Roberts.
[2017-04-05] MEDS ORDERED: metroNIDAZOLE IV 500 MG/100ML* 500 MG/100 ML BAG IVPB ONE (10:47)
[2017-04-05] MEDS ORDERED: PEG 3000 GI LAVAGE* 1 GALLON PO ONE (11:41)
[2017-04-05] MEDS ORDERED: Ondansetron INJ* 2 MG/ML VIAL IV PRN (11:41)
[2017-04-05] MEDS ORDERED: metroNIDAZOLE IV 500 MG/100ML* 500 MG/100 ML BAG IVPB SCH (12:00)
--- NOTE | 2017-04-05 12:16 | RAD ---
Indication: Back pain. Comparison: Full field of view abdomen pelvis CT of earlier the same date. Technique: Reformatted images with bone algorithm from the contrast-enhanced CT abdomen and pelvis exam performed earlier on the same date. Report: Chronic appearing anterior compression deformity of the L1 vertebral body with approximate 30% loss of height at the anterior margin. Multilevel small Schmorl node endplate herniations. Negative for acute or subacute fracture or spondylolysis at any level. Mild kyphosis at the L1-L2 level. Negative for spondylolisthesis at any level. T12-L1: Unremarkable disc level for age without acquired spinal stenosis. L1-L2: Advanced disc space narrowing. Large dorsal osteophyte arising from the superior endplate of L2 extends from the RIGHT paracentral through the LEFT foraminal level results in moderately severe central canal and severe LEFT lateral recess stenosis negative for significant foraminal stenosis. L2-L3: Mild disc space narrowing and mild annular disc bulge. Along with facet joint osteoarthritis there is mild resulting acquired central canal stenosis and mild bilateral foraminal stenosis. L3-L4: Mild annular disc bulge and posterior element osteoarthritis results in moderate acquired central canal and mild bilateral foraminal stenosis. L4-L5: Mild annular disc bulge and posterior element osteoarthritis. Moderate resulting central canal and mild bilateral foraminal stenosis. L5-S1: Moderate disc space narrowing. Mild annular disc bulge. Negative for central canal or foraminal stenosis. 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
[2017-04-05] MEDS: Ciprofloxacin 400MG IVPREMIX(* 400 MG/200 ML BAG IVPB SCH (12:23)
[2017-04-05] MEDS: NS 0.9% 1000 ML* 1,000 ML IV SCH (13:21)
[2017-04-05] MEDS: Heparin VIAL(*) 5000 UNITS/ML VIAL (FIVE THOUSAND) SUBCUT SCH ×2 (13:21→22:09)
[2017-04-05] MEDS: Acetaminophen TAB* 325 MG PO PRN ×3 (13:43→22:12)
--- NOTE | 2017-04-05 14:31 | HP ---
CC: Dr. Mcqueen; Dr. Horvath * HISTORY AND PHYSICAL: DATE OF ADMISSION: 04/05/17 PRIMARY CARE PROVIDER: Dr. Mcqueen. ATTENDING PHYSICIAN WHILE IN THE HOSPITAL: Dione Cruz MD * (report dictated by Jeremy Grigsby NP). CHIEF COMPLAINT: 1. Constipation. 2. Left lower quadrant abdominal pain. HISTORY OF PRESENT ILLNESS: Mr. Avendano is a 66-year-old male patient who, for the last month, has been having change in caliber of his stool. He has been constipated off and on. He has required fleet enemas and he has also required MiraLAX. He says typically he has a bowel movement once a day in the morning after his coffee and he is pretty regular. However, though, he has noticed that about 4 weeks ago, he was working outside pretty extensively moving rocks and got a sunburn and became very dehydrated and since then he has been having issues with his bowels. He has been trying to take p.o. fluids. He has been having difficulty with defecation at times. He states when he does go, he has a liquid bowel movement. The only time he has had a solid bowel movement was when he took a fleet enema 2 weeks ago. He has been working with his primary on this and they have instructed him to take MiraLAX. He also does admit about 2 weeks ago to having an episode, and he was here on with a facial droop. 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 He is having intermittent left lower quadrant discomfort, but no association with food intake. He says that food does not make it any better or worse, he says sometimes it is positional and can happen any time of the day and it waxes and wanes between a 5/10 and 8/10 pain when he does have the pain and it is described as a cramping pain. He states he does not feel anymore distended or bloated. He says that he has not had any fevers or chills and he has not noticed any blood or tarry stools. The only change in medication is he recently was prescribed ibuprofen for his back pain and also was on prednisone taper, which he has now finished. He again was concerned. He tried 8 spoonful of MiraLAX yesterday per the recommendation of his primary, but with no avail. He had no bowel movement, all he had was a liquid stool and he says he has been eating. He says at times his appetite is down, but yesterday and last 2 days he has eaten beef stroganoff, spaghetti and meatballs, and he has tolerated it well and he has never had any vomiting with the exception of one episode after he took MiraLAX with prune juice together that made him vomit, but that is it, and there has been no nausea. He came into the ER and was evaluated. Ultimately , there was concern that the sigmoid colon may have a colitis and we were asked to evaluate for admission. PAST MEDICAL HISTORY: Significant for: 1. Hypertension. 2. Asthma. 3. Young's palsy. PAST SURGICAL HISTORY: 1. He has had an ORIF of the left upper extremity. 2. ORIF of the right upper extremity. 3. He had a colonoscopy about [address] Johnson. HOME MEDICATIONS: According to the list that we were able to obtain include: 1. Vitamin E 400 units p.o. daily. 2. Cialis 5 mg p.o. daily. 3. MiraLAX 17 g p.o. daily. 4. Multivitamin 1 tablet daily. 5. Singulair 10 mg p.o. daily. 6. Toprol-XL 50 mg p.o. daily. 7. Cozaar 50 mg daily. 8. Ibuprofen 400 mg p.o. every 6 hours as needed. 9. B12 1000 mcg p.o. daily. 10. Vitamin C 1000 mg daily. 11. Vitamin B complex 1 tablet p.o. daily. ALLERGIES TO MEDICATIONS: Include no known drug allergies. FAMILY HISTORY: His mother is alive at the age of 93. No reports of colon cancer. The father has a history of hypertension, TIA, but again no reports of cancer. SOCIAL HISTORY: He does not smoke. He does not drink. His surrogate decision maker is his . 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 REVIEW OF SYSTEMS: There is no documented fever. He denied any significant weight change. There is no double vision. He denies having any ear discharge. There is no rhinorrhea. He denies having any sore throat. There is no thyroid enlargement. He denies having any chest pain. There is no orthopnea. He denies having any nocturnal dyspnea. There is abdominal pain per my HPI. There was one episode of nausea with vomiting. No dysuria. No frequency. There was no seizure. No loss of consciousness. No pruritus and no skin ulcerations. Review of 14 systems completed, all others negative. PHYSICAL EXAMINATION GENERAL: At this time, Mr. Avendano is a 66-year-old male patient. He appears to be well nourished, well developed. He is sitting in the ER stretcher. He does not appear to be in any acute distress. VITAL SIGNS: Reveals blood pressure 150/97, pulse 97, respirations were 18, O2 sat 98% on room air and his temperature 96.9. HEENT: Head is atraumatic and normocephalic. Eyes: EOMs are intact. Sclerae anicteric and not pale. Throat: Oral mucosa appears to be dry. No oropharyngeal erythema. NECK: Supple. LUNGS: Clear to auscultation. No wheezes, rales, or rhonchi. HEART: Sounds S1 and S2. Regular rate and rhythm. No murmurs, rubs or gallops. ABDOMEN: Soft, flat, nontender. Bowel sounds present. EXTREMITIES: Pulses were 2+ throughout. He is able to move all 4 extremities with 5/5 strength. RECTAL: I did not appreciate any tarry looking stools. I do not appreciate any mass and there is no pain and no obvious hemorrhoids were noted. He had good rectal tone. NEUROLOGIC: He is awake, alert and oriented x3. No gross focal deficits. SKIN: Intact. DIAGNOSTIC STUDIES/LAB DATA: Labs revealed a WBC of 10.7, RBC of 4.92, hemoglobin of 15.4, hematocrit 45. INR 0.86. PTT is 27.4. Sodium 130, potassium 3.7, chloride of 99, bicarb 27, BUN 26, his creatinine was 1.04, glucose 108, lactic 0.7, calcium 8.6, mag 2.2. Total bili 0.8, AST 16, ALT 23, alk phos 69, troponin 0, CRP 20.9, albumin of 3.5, lipase 37. Urine showed trace leukocyte esterase, 1+ WBC, 1+ RBC, present squamous epithelial cells. He did have a chest x-ray obtained in the ED, which showed no evidence for acute intrathoracic disease. There was an abdominal pelvis CT, which showed redundant sigmoid colon is fluid filled without significant dilatation or appreciable mural thickening or perienteric inflammatory change, negative for diverticulosis, normal appendix, negative for obstructive uropathy, lumbosacral spine, degenerative spondylolisthesis and facet joint arthritis at L1-2. There is severe disk space narrowing and chronic appearing large dorsal disk osteophyte complex with results and moderately severe acquired central canal and left lateral recess stenosis, less marked spinal stenosis at the more caudate levels. Old medical records were reviewed. He did have an EKG that shows a normal sinus rhythm with the rate of 90. No ST elevations or T-wave inversions were noted. It was reviewed to an EKG from March of this year, which appears to be similar. Old medical records were reviewed. ASSESSMENT AND PLAN: Ms. Avendano is a 66-year-old male patient coming into the ER today with complaints of abdominal discomfort and also having some back discomfort as well. His biggest complaint was his constipation and him not having normal bowel movements in the last month and intermittent left lower quadrant pain. He will be admitted under observation status for: 1. Constipation with abdominal pain. At this point, the colon is fluid filled. I know there is not any mural thickening, but he does have a slightly elevated CRP and he has a left shift, so I think he deserves Cipro and Flagyl. I did consult Dr. Horvath and the plan is to go ahead and do a colonoscopy. We will give him GoLYTELY prep. We will keep him on clear liquid diet. We will transition him to just water at 8 o'clock tonight and then try to see if we can do a colonoscopy tomorrow to make sure there is not any stricture or mass, and possibly the GoLYTELY may help him to have a bowel movement as well, which may make him feel better, but again we will continue the antibiotics and will follow. 2. Back pain. Again, it does appear that he has significant lumbar disease and stenosis. He does not have any radiculopathy. At this point, I would recommend PT evaluation and probably following up with his primary. He may need to see neurosurgeon at some point and possibly an MRI, but this can be done outpatient. 3. Hypertension. We will continue meds as prescribed. 4. Asthma. It is not an active issue currently. We will continue with Singulair. If we need to, we can order p.r.n. albuterol. 5. Young's palsy. Again, this is resolving. On neuro exam, I did not appreciate any facial droop and he is able to close his eyes completely now and no numbness and tingling to the right side. We will monitor. 6. DVT prophylaxis. He is moderate risk. We will place him on heparin subcu. 7. Code status. Full code. 8. Fluids, electrolytes, and nutrition. Again, clear liquid diet. We will give him normal saline at 125 an hour. TIME SPENT: Time spent on the admission 60 minutes, greater than half time spent [id number] with the patient obtaining my history and physical, the other half of the time was spent going over the plan of care with the patient and implementing plan of care. I did discuss the plan of care with my attending, Dr. Cruz, she is in agreement. JEREMY GRIGSBY, NATANAEL [id number]/[facility] #: [id number] RHONDA
--- NOTE | 2017-04-05 16:52 | CONS ---
GASTROENTEROLOGY CONSULT: DATE: 04/05/17 CONSULTING PHYSICIANS: Dr Walden, Jeremy Grigsby NP REASON FOR CONSULTATION: Left lower quadrant distress and bowel habit changes for 5 wks with elevated CRP. 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 He has tried MiraLAX, fleet enemas, and MiraLAX again and the distress continues. It is there at a low level for most of the day but especially prominent at night. He had a negative colonoscopy, September 2007. He states everything seemed to begin around the last week in January when there was a padma day and he tremendously over exerted himself with lawn work resulting in a lot of pulled muscles and a sunburn. He could not sleep for a couple of days. His stools diminished. He was taking a fair amount of ibuprofen. There were some nugget-like stools and other loose ones. He just felt like he was not producing a sufficient fecal mass. There was no fever or vomiting or rectal bleeding. He went to [facility] on [facility]17 and was told to take MiraLAX. It seemed to loosen the stool, but he still did not have a sense that it was adequate. Just a couple of days after that, he had a right facial droop and went to [facility] and was transferred to the emergency room where CT was negative and he was given a course of prednisone and Valtrex for presumed Young's Palsy. He just finished those yesterday. He continues to have a sense that his stools are diminished and looser. He has been anorectic, though yesterday said he had an excellent appetite and had some cookies early in the day and then meatballs with sauce, though no pasta. He did not have any vegetables or salad. The day before that, he had actually phone consulted Dr. Richards through the primary office and had 8 measuring caps of MiraLAX in 4 glasses of water or Gatorade. He had some strong feeling of needing to go, but what he produced was liquid michael in color. There was still no blood. PAST MEDICAL HISTORY: 1. Hypertension - no sequelae. 2. History of kidney stones - 2002, Dr. Storey. 3. Left wrist fracture, September 2016. 4. Reactive airway disease. 5. History of diminutive non-precancerous colon polyp - a 25 cm lymphoid aggregate biopsy removed, September 2007. FAMILY HISTORY: He has a younger sister with MS. His mother is alive and well and vigorous in her early 90s. His father of a cerebral aneurysm hemorrhage. 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 REVIEW OF SYSTEMS: No history of arrhythmia, palpitations, syncope, seizure, coronary artery disease, hemoptysis, hepatitis, abdominal surgery, or treatment for diverticulitis in the past. He has seen Dr Dunaway in 2013 with the diagnosis listed of peripheral neuropathy. PHYSICAL EXAMINATION: He is a healthy appearing man in bed of average build giving a very precise history. Earlier, it had been noted by the ER staff that his was quite distraught when it did not appear any answers or effective treatment had been offered. HEENT exam shows no icterus. He has no adenopathy. He moves his head freely and can move about the bed easily changing positions to sitting or dangling. There is no obvious musculoskeletal distress. Lungs are clear. Heart sounds are normal. The abdomen is flat with increased bowel sounds, firm, but there is no great resistance and there is no obvious tenderness, although palpating in the left lower quadrant, he will say that that is where the problem is. Perianal inspection is normal and rectal reveals mucoid watery michael material sent for Hemoccult. Extremities show no edema, asymmetry, deformity and pulses are intact. LABORATORY DATA: CBC: Hemoglobin 15.4, hematocrit 45, MCV 91, platelets 235, 000. Chemistries normal with ALT 23, alkaline phosphatase 69, bilirubin 0.8, creatinine 1.04, BUN 26. Sodium 130. B12 is 1267. IMAGING STUDIES: Redundant sigmoid colon without obvious diverticulosis or inflammatory change. The ureters appear normal. The small bowel appears normal. IMPRESSION: This 66-year-old man complains of bowel habit changes. This seemed to start 5 or 6 weeks ago after musculoskeletal stress and expected soreness. He, however, is no longer troubled by musculoskeletal type of discomfort and instead localizes pain to left lower quadrant. His bowel habit abnormalities have continued. In the emergency room, the CRP is slightly elevated and it would seem most prudent to start antibiotics and prep him for an expedited colonoscopy while he is under observation. Stenosis or partial blockage of the sigmoid colon is certainly a possibility. [id number]/[facility] #: [id number] RHONDA
[2017-04-05] MEDS: metroNIDAZOLE IV 500 MG/100ML* 500 MG/100 ML BAG IVPB SCH (18:21)
[2017-04-06] MEDS: Ciprofloxacin 400MG IVPREMIX(* 400 MG/200 ML BAG IVPB SCH ×2 (00:39→15:55)
[2017-04-06] MEDS: NS 0.9% 1000 ML* 1,000 ML IV SCH (00:51)
[2017-04-06] MEDS: metroNIDAZOLE IV 500 MG/100ML* 500 MG/100 ML BAG IVPB SCH ×3 (03:09→22:01)
[2017-04-06] MEDS: Acetaminophen TAB* 325 MG PO PRN ×2 (03:15→08:07)
[2017-04-06] MEDS: Heparin VIAL(*) 5000 UNITS/ML VIAL (FIVE THOUSAND) SUBCUT SCH ×3 (05:12→22:01)
[2017-04-06 05:30] LABS: Hematocrit 40 % (42-52); Hemoglobin 13.7 g/dl (14.0-18.0); Mean Corpuscular HGB Conc 35 g/dl (31-36); Mean Corpuscular Hemoglobin 31 pg (27-31); Mean Corpuscular Volume 90 fL (80-94); Mean Platelet Volume 7 um3 (7.4-10.4); Red Blood Count 4.37 10^6/ul (4.0-5.4); Red Cell Distribution Width 13 % (10.5-15); White Blood Count 8.2 10^3/ul (3.5-10.8)
[2017-04-06 05:50] LABS: BUN/Creatinine Ratio 14.9 (8-20); Calcium 7.6 mg/dL (8.6-10.3); EGFR African American 136.5 (>60); EGFR Non-African American 106.2 (>60); Potassium 3.4 mmol/L (3.5-5.0)
[2017-04-06] MEDS: Losartan TAB* 25 MG PO SCH (08:10)
[2017-04-06] MEDS: Metoprolol Succinate XL TAB* 50 MG PO SCH (08:10)
[2017-04-06] MEDS: Montelukast Sodium TAB* 10 MG PO SCH (08:10)
--- NOTE | 2017-04-06 08:48 | RAD ---
INDICATION: Abdominal pain COMPARISON: CT April 05, 2017 TECHNIQUE: Erect and supine views of the abdomen are submitted. FINDINGS: Bones: There are no acute bony findings. Soft tissues: The soft tissues appear normal. The psoas margins are sharp. Bowel gas pattern: There is air within both large and small bowel. Several small bowel loops are mildly dilated and there are scattered air-fluid levels. There is a paucity of gas in the distal colon. The findings are compatible with a partial small bowel obstruction. Calcifications: There are no abnormal calcifications. Other: None IMPRESSION: PARTIAL SMALL BOWEL OBSTRUCTION.
--- NOTE | 2017-04-06 10:09 | RAD ---
INDICATION: Abdominal pain. COMPARISON: Comparison is made with a prior CT of the abdomen and pelvis from April 05, 2017. TECHNIQUE: Multiple real-time images of the kidneys were obtained. FINDINGS: The kidneys are normal in size shape and echogenicity. The right kidney measured 11.1 x 5.5 x 5.5 cm and the left kidney measured 11.9 x 5.6 x 4.8 cm. No significant focal abnormality or hydronephrosis was present. IMPRESSION: NEGATIVE EXAM.
[2017-04-06] MEDS ORDERED: Meperidine SYRINGE* 50 MG/ML ONE (12:53)
[2017-04-06] MEDS ORDERED: Midazolam* 1 MG/ML 10 ML VIAL (10 MG) ONE (12:54)
--- NOTE | 2017-04-06 16:23 | RAD ---
Indication: Abdominal pain for one month. Constipation; possible colitis. History of kidney stones. Comparison: April 06, 2017 0830 hours. April 05, 2017 CT. Technique: Supine and upright views of the abdomen. Report: No radiographic evidence for free air. Decreased gaseous distention of the colon and decreased fluid levels within the colon and small bowel compared with the earlier exam of the same date. No suspicious calcifications or mass effect. Pelvic phleboliths noted. Unremarkable soft tissue contours. IMPRESSION: The constellation of findings favors resolving ileus.
--- NOTE | 2017-04-06 16:51 | PN ---
Subjective Date of Service: 04/06/17 Interval History: Pt is feeling better today than yesterday. He has not had any BMs since the colonoscopy. He feels gassy still and as if there is pressure in his stomach. Objective Active Medications: Acetaminophen (Tylenol Tab*) 650 mg PO Q4H PRN PRN Reason: FEVER/PAIN Last Admin: 04/06/17 08:07 Dose: 650 mg Heparin Sodium (Porcine) (Heparin Vial(*)) 5,000 units SUBCUT Q8HR [facility] Last Admin: 04/06/17 15:55 Dose: 5,000 units Sodium Chloride (Ns 0.9% 1000 Ml*) 1,000 mls @ 125 mls/hr IV PER RATE [facility] Last Admin: 04/06/17 00:51 Dose: 125 mls/hr Metronidazole/Sodium Chloride (Flagyl 500 Mg Ivpb*) 500 mg in 100 mls @ 100 mls /hr IVPB 0600,1400,2200 [facility] Ciprofloxacin/Dextrose (Cipro 400 Mg Ivpremix(*)) 400 mg in 200 mls @ 200 mls/ hr IVPB 0200,1400 [facility] Losartan Potassium (Cozaar Tab*) 50 mg PO DAILY [facility] Last Admin: 04/06/17 08:10 Dose: 50 mg Metoprolol Succinate (Toprol Xl Tab*) 50 mg PO DAILY [facility] Last Admin: 04/06/17 08:10 Dose: 50 mg Montelukast Sodium (Singulair Tab*) 10 mg PO DAILY [facility] Last Admin: 04/06/17 08:10 Dose: 10 mg Ondansetron HCl (Zofran Inj*) 4 mg IV Q6H PRN PRN Reason: NAUSEA Vital Signs 04/05/17 04/06/17 04/06/17 20:02 00:09 01:35 Temperature 98.3 F 97.9 F Pulse Rate 94 99 Respiratory 14 17 Rate Blood Pressure 155/94 144/92 (mmHg) O2 Sat by Pulse 97 96 97 Oximetry 04/06/17 04/06/17 04/06/17 03:43 03:52 07:37 Temperature 97.7 F 98.3 F Pulse Rate 87 92 Respiratory 18 15 16 Rate Blood Pressure 153/96 157/96 (mmHg) O2 Sat by Pulse 99 97 Oximetry 04/06/17 04/06/17 04/06/17 08:00 11:19 14:07 Temperature 98.5 F 97.8 F Pulse Rate 93 88 Respiratory 18 16 18 Rate Blood Pressure 150/98 138/82 (mmHg) O2 Sat by Pulse 97 97 Oximetry 04/06/17 16:04 Temperature 97.9 F Pulse Rate 95 Respiratory Rate Blood Pressure 147/82 (mmHg) O2 Sat by Pulse 99 Oximetry Oxygen Devices in Use Now: None Appearance: Middle aged male sitting up in bed, NAD Eyes: No Scleral Icterus Ears/Nose/Mouth/Throat: Mucous Membranes Moist Respiratory: Symmetrical Chest Expansion and Respiratory Effort, Clear to Auscultation Cardiovascular: NL Sounds; No Murmurs; No JVD, RRR, No Edema Abdominal: - - BS+ soft, NT, mildly distended Extremities: No Clubbing, Cyanosis Skin: No Rash or Ulcers, No Nodules or Sclerosis Neurological: Alert and Oriented x 3 Result Diagrams: 04/06/17 05:19 04/06/17 05:19 Microbiology and Other Data: Microbiology 04/05/17 11:35 Stool Occult Blood (ROB) - Final Stool Assess/Plan/Problems-Billing Mr Avendano is a 66 yo M who presented to the ER on 04/05/17 with c/o change in BMs and LLQ pain and was admitted for evaluation of the same. - Patient Problems (1) Abdominal pain Current Visit: Yes Status: Acute Code(s): R10.9 - UNSPECIFIED ABDOMINAL PAIN SNOMED Code(s): 70689728 Comment: AXR questioned partial SBO with subsequent AXR post colonoscopy showing improving ileus. Will monitor symptoms following the clean out from [employer]. Repeat AXR tomorrow AM. (2) Change in bowel movement Current Visit: Yes Status: Acute Code(s): R19.4 - CHANGE IN BOWEL HABIT SNOMED Code(s): 055089482 Comment: Colonoscopy was done this AM and revealed a redundant colon but otherwise no other findings. Continue to monitor BMs. (3) HTN (hypertension) Current Visit: Yes Status: Acute Code(s): I10 - ESSENTIAL (PRIMARY) HYPERTENSION SNOMED Code(s): 79215565 Comment: BP is under fair control. Continue his home medication regimen for now. (4) DVT prophylaxis Current Visit: Yes Status: Acute Code(s): KDZ6322 - SNOMED Code(s): 843796009 Comment: SQ heparin (5) Full code status Current Visit: Yes Status: Acute Code(s): Z78.9 - OTHER SPECIFIED HEALTH STATUS SNOMED Code(s): 859868453
[2017-04-06] MEDS ORDERED: Potassium Chlor TAB* 20 MEQ TAB.ER PO ONE (17:30)
--- NOTE | 2017-04-06 19:21 | PRO ---
DATE: 04/06/17 - ROOM #[id number] REFERRING PHYSICIAN: Jeff Richards * PROCEDURE: Colonoscopy and ileoscopy INDICATION: This 66-year-old man has had 5 to 6 weeks of a sense of obstipation and incomplete or unsatisfactory bowel movements. He has not seen any blood or had any fever or vomiting. See consult Since admission, he has taken 4 L of Colyte ending at around 3 a.m. and then some clear liquids after that. He commented to the nurses that he was feeling better after that process. What was coming through was still somewhat murky, but quite watery. There was no vomiting during the process and no fever. He had a colonoscopy in September 2007. Informed consent was obtained with an opportunity for questions and special concerns. ENDOSCOPIST: Dr. Horvath MEDICATIONS: Midazolam 7, meperidine 50. FINDINGS: He is a healthy-appearing, middle-aged man in no distress. His abdomen is symmetric with somewhat prominent bowel sounds, though there are no mechanical sounds. Perianal inspection and rectal are normal. Initial views show a considerable amount of watery clearish fluid with lots of suspended globules of mucus and stool. There are no seeds and the material is easily dispersed and suctioned. Quite a large volume of material is suctioned. The scope easily enters into the rectosigmoid and sigmoid. The left colon loops are redundant. Standard advancement, rotation, and re-insertion with a stiffener was helpful. A nursing hand check helped lift the transverse. While the colon was redundant, passage was of average difficulty. The cecum was reached. Entering the terminal ileum required a fair amount of angulation as the ileocecal valve appeared rather taut, but once in the ileum, 30 cm were reviewed. The terminal ileum for 30 cm, ileocecal valve and the right colon in general was normal. It was entered 3 times. On slow withdrawal, no abnormalities were noted apart from a couple of small, uninflamed, unscarred sigmoid diverticula. Final views in the rectum including retroflexion were normal. IMPRESSION: 1. Minimal diverticulosis. 2. Redundant colon - though colonoscopy was of average difficulty; this could predispose to twisting, which might play a role in his presentation, though that has not been documented at this point with any x-rays. 3. Left lower quadrant pain - source not conclusively established with this exam, though he tolerated the prep well without any vomiting and he will be placed on full liquids and the diet cautiously advanced under observation. [id number]/[facility] #: [id number] RHONDA
[2017-04-07] MEDS: Ciprofloxacin 400MG IVPREMIX(* 400 MG/200 ML BAG IVPB SCH ×2 (01:26→15:47)
[2017-04-07] MEDS: Acetaminophen TAB* 325 MG PO PRN ×2 (01:26→05:42)
[2017-04-07] MEDS: NS 0.9% 1000 ML* 1,000 ML IV SCH (05:36)
[2017-04-07] MEDS: metroNIDAZOLE IV 500 MG/100ML* 500 MG/100 ML BAG IVPB SCH ×2 (05:36→13:00)
[2017-04-07] MEDS: Heparin VIAL(*) 5000 UNITS/ML VIAL (FIVE THOUSAND) SUBCUT SCH ×2 (05:42→15:47)
[2017-04-07] MEDS: Losartan TAB* 25 MG PO SCH (09:06)
[2017-04-07] MEDS: Montelukast Sodium TAB* 10 MG PO SCH (09:06)
[2017-04-07] MEDS: Metoprolol Succinate XL TAB* 50 MG PO SCH (09:06)
--- NOTE | 2017-04-07 10:15 | RAD ---
INDICATION: Small bowel obstruction, follow-up. COMPARISON: Comparison is made with prior x-ray studies of the abdomen from June 06, 2017. Correlation is also made with a prior CT of the abdomen from April 05, 2017. TECHNIQUE: Supine and upright views of the abdomen were obtained. FINDINGS: There is mild gaseous distention of the small bowel and colon. There are small scattered air-fluid levels. These findings appear unchanged significantly from the prior studies. No free intraperitoneal air is seen. A couple calcific densities project over the pelvis on the left side most consistent with phleboliths. IMPRESSION: FINDINGS MOST CONSISTENT WITH A PARALYTIC ILEUS, UNCHANGED.
--- NOTE | 2017-04-07 13:14 | PN ---
Subjective Date of Service: 04/07/17 Interval History: Pt is feeling much better than he has in a month. He states that he has been passing some gas, no BM yet. He has tolerated a full liquid diet. He has minimal abdominal discomfort. Objective Active Medications: Acetaminophen (Tylenol Tab*) 650 mg PO Q4H PRN PRN Reason: FEVER/PAIN Last Admin: 04/07/17 05:42 Dose: 650 mg Heparin Sodium (Porcine) (Heparin Vial(*)) 5,000 units SUBCUT Q8HR [facility] Last Admin: 04/07/17 05:42 Dose: 5,000 units Sodium Chloride (Ns 0.9% 1000 Ml*) 1,000 mls @ 125 mls/hr IV PER RATE [facility] Last Admin: 04/07/17 05:36 Dose: 125 mls/hr Metronidazole/Sodium Chloride (Flagyl 500 Mg Ivpb*) 500 mg in 100 mls @ 100 mls /hr IVPB 0600,1400,2200 [facility] Last Admin: 04/07/17 13:00 Dose: 100 mls/hr Ciprofloxacin/Dextrose (Cipro 400 Mg Ivpremix(*)) 400 mg in 200 mls @ 200 mls/ hr IVPB 0200,1400 [facility] Last Admin: 04/07/17 01:26 Dose: 200 mls/hr Losartan Potassium (Cozaar Tab*) 50 mg PO DAILY [facility] Last Admin: 04/07/17 09:06 Dose: 50 mg Metoprolol Succinate (Toprol Xl Tab*) 50 mg PO DAILY [facility] Last Admin: 04/07/17 09:06 Dose: 50 mg Montelukast Sodium (Singulair Tab*) 10 mg PO DAILY [facility] Last Admin: 04/07/17 09:06 Dose: 10 mg Ondansetron HCl (Zofran Inj*) 4 mg IV Q6H PRN PRN Reason: NAUSEA Vital Signs 04/06/17 04/06/17 04/06/17 14:07 16:04 19:49 Temperature 97.8 F 97.9 F 98.1 F Pulse Rate 88 95 83 Respiratory 18 20 Rate Blood Pressure 138/82 147/82 146/92 (mmHg) O2 Sat by Pulse 97 99 99 Oximetry 04/06/17 04/06/17 04/07/17 20:36 23:14 06:31 Temperature 98.8 F 97.5 F Pulse Rate 91 76 Respiratory 16 16 16 Rate Blood Pressure 141/84 140/92 (mmHg) O2 Sat by Pulse 97 98 Oximetry 04/07/17 04/07/17 04/07/17 06:50 06:51 07:45 Temperature 98.1 F Pulse Rate 84 Respiratory 18 17 Rate Blood Pressure 148/96 140/95 (mmHg) O2 Sat by Pulse 98 Oximetry Oxygen Devices in Use Now: None Appearance: Middle aged male sitting up in bed, NAD Eyes: No Scleral Icterus Ears/Nose/Mouth/Throat: Mucous Membranes Moist Respiratory: Symmetrical Chest Expansion and Respiratory Effort, Clear to Auscultation Cardiovascular: NL Sounds; No Murmurs; No JVD, RRR, No Edema Abdominal: NL Sounds; No Tenderness; No Distention Extremities: No Clubbing, Cyanosis Skin: No Rash or Ulcers, No Nodules or Sclerosis Neurological: Alert and Oriented x 3 Result Diagrams: 04/06/17 05:19 04/06/17 05:19 Microbiology and Other Data: Microbiology 04/05/17 11:35 Stool Occult Blood (ROB) - Final Stool Assess/Plan/Problems-Billing Mr Avendano is a 66 yo M who presented to the ER on 04/05/17 with c/o change in BMs and LLQ pain and was admitted for evaluation of the same. - Patient Problems (1) Abdominal pain Current Visit: Yes Status: Acute Code(s): R10.9 - UNSPECIFIED ABDOMINAL PAIN SNOMED Code(s): 68699789 Comment: AXR today is simillar to yesterday afternoon where an ileus was found. He has been passing gas. No BMs yet. Advance diet to low residue and monitor for tolerance. (2) Change in bowel movement Current Visit: Yes Status: Acute Code(s): R19.4 - CHANGE IN BOWEL HABIT SNOMED Code(s): 555608879 Comment: Colonoscopy was done this AM and revealed a redundant colon but otherwise no other findings. Continue to monitor BMs. (3) HTN (hypertension) Current Visit: Yes Status: Acute Code(s): I10 - ESSENTIAL (PRIMARY) HYPERTENSION SNOMED Code(s): 81920336 Comment: BP is under fair control. Continue his home medication regimen. (4) DVT prophylaxis Current Visit: Yes Status: Acute Code(s): JOT0469 - SNOMED Code(s): 223366574 Comment: SQ heparin (5) Full code status Current Visit: Yes Status: Acute Code(s): Z78.9 - OTHER SPECIFIED HEALTH STATUS SNOMED Code(s): 004949490 Status and Disposition: If pt tolerates advanced diet d/c home this afternoon
[2017-04-07 15:41] VITALS: BP 120/78
--- NOTE | 2017-04-08 08:16 | DS ---
CC: Dr. Mcqueen * DISCHARGE SUMMARY: DATE OF ADMISSION: 04/05/17 DATE OF DISCHARGE: 04/07/17 PRIMARY CARE PROVIDER: Dr. Mcqueen. PRINCIPAL DIAGNOSIS: Abdominal pain and change of bowel movements of unclear etiology. SECONDARY DIAGNOSES: 1. Hypertension. 2. Asthma. DISCHARGE MEDICATIONS: 1. Cipro 500 mg p.o. twice daily x4 more days. 2. Flagyl 500 mg p.o. twice daily x4 more days. 3. Vitamin C 1000 mg p.o. daily. 4. B complex 1 tab p.o. daily. 5. Ibuprofen 400 mg p.o. q. 6 hour p.r.n. pain. 6. Vitamin B12 1000 micrograms p.o. daily. 7. Singulair 10 mg p.o. daily. 8. Metoprolol XL 50 mg p.o. daily. 9. Losartan 50 mg p.o. daily. 10. Tadalafil 5 mg p.o. daily. 11. MiraLAX 17 g p.o. daily. 12. Multivitamin 1 tab p.o. daily. 13. Vitamin E 400 units p.o. daily. HOSPITAL COURSE: Mr. Avendano is a 66-year-old male who presented to the emergency room on 04/05/17 with complaints of constipation and left lower quadrant abdominal pain. Over the past 1 month, the patient had noted a change in the caliber of stool. He had been constipated off and on. He has been using MiraLAX and enemas at home. Because of this the patient was admitted for evaluation. The patient underwent a CT scan of the abdomen and pelvis which revealed a fluid filled colon. He was started on Cipro and Flagyl at the recommendation of Dr. Horvath. He ultimately underwent colonoscopy on . This did reveal a redundant colon; however, no other clear findings. Abdominal x-ray on 04/06/17 in the morning was suspicious for partial small bowel obstruction. Following the colonoscopy in the afternoon on 04/06/17 repeat x-ray was obtained and showed a possible ileus. X-ray on the morning of 04/07/17 revealed continued findings suggestive of ileus. The patient, however , following the colonoscopy prep and colonoscopy, feels dramatically better. The etiology of his abdominal pain has not been identified. I do question if this just may have represented severe constipation. The patient has been on a full liquid diet, advanced to low fiber diet, and with this the patient has been doing well. Again, the etiology of his abdominal pain and change in bowel movement consistency/caliber is not completely clear. He will continue to monitor his symptoms at home and he can follow up with Dr. Horvath as needed. The patient will continue on the antibiotics as he did seem to improve with these being in place. He will complete 4 more days of therapy which will be a total of 7 days. FOLLOWUP CONCERNS: The patient is being discharged home today, 04/07/17. He is to follow up with Dr. Mcqueen in the next 4 to 7 days. ACTIVITY LEVEL: As tolerated. DIET: Low residue. CONDITION ON DISCHARGE: Stable. TIME SPENT: 35 minutes was spent discharging this patient. [id number]/[facility] #: [id number] MTDD
== END 2017-04-07 17:30 | disposition home or self-care (01) | DRG 254 ==
LOC: ED 06:21 → MED 10:34
PROVIDERS: ADMIT Internal Medicine; ATTEND Hospitalist
PROC: 0DJD8ZZ Inspection of Lower Intestinal Tract, Via Natural or Artificial Opening Endoscopic (ICD-10-PCS; principal; 2017-04-06)
DX: R19.4 Change in bowel habit (principal); K56.7 Ileus, unspecified; I10 Essential (primary) hypertension; R10.9 Unspecified abdominal pain; G51.0 Bell's palsy; Z82.49 Family history of ischemic heart disease and other diseases of the circulatory system; R40.2412 Glasgow coma scale score 13-15, at arrival to emergency department; K57.30 Diverticulosis of large intestine without perforation or abscess without bleeding; M48.06 Spinal stenosis, lumbar region; M51.36 Other intervertebral disc degeneration, lumbar region; K59.00 Constipation, unspecified; Z82.3 Family history of stroke; Z87.442 Personal history of urinary calculi; Z97.4 Presence of external hearing-aid; Z87.891 Personal history of nicotine dependence; Z86.010 Personal history of colon polyps; Z82.0 Family history of epilepsy and other diseases of the nervous system
CPT/HCPCS: 36415; 71010; 72131; 74020; 74177; 76775; 80048; 80053; 81003; 81015; 82272; 83605; 83690; 83735; 84484; 85025; 85610; 85730; 86140; 87086; 93005; 99156; 99157; A9270-GY; J0744; J1644; J2250; J2310; Q9967

== ENCOUNTER 2017-11-20 13:47 | Emergency (ER) | payer BC ==
[2017-11-20 13:56] VITALS: BP 158/103
--- NOTE | 2017-11-20 14:08 | UC ---
Hand/Wrist HPI - HPI Summary HPI Summary: Patient hit his right hand on a piece of wood about an hour prior to arrival. MCP joint is swollen there small abrasion neuro motor and circulation is intact. Patient denies need for pain medication - History Of Current Complaint Chief Complaint: UCUpperExtremity Stated Complaint: HAND INJURY Time Seen by Provider: 11/20/17 13:52 Hx Obtained From: Patient ?: No Mechanism Of Injury: hit his right hand on a piece of wood Onset/Duration: Sudden Onset, Lasting Hours - 1 Severity Initially: Mild Severity Currently: Mild Pain Intensity: 3 Pain Scale Used: 0-10 Numeric Character Of Pain: Aching, Throbbing Aggravating Factor(s): Movement Alleviating Factor(s): Rest, Ice Associated Signs And Symptoms: Positive: Swelling Related History: Dominant Hand Right - Allergies/Home Medications Allergies/Adverse Reactions: Allergies Allergy/AdvReac Type Severity Reaction Status Date / Time No Known Allergies Allergy Verified 11/20/17 13:56 Home Medications: Home Medications Cholecalciferol (Vitamin D3) [Vitamin D3] 400 unit PO 11/20/17 [History] PMH/Surg Hx/FS Hx/Imm Hx Previously Healthy: No Cardiovascular History: Hypertension - Surgical History Surgical History: Yes Surgery Procedure, Year, and Place: tonsilectomy. CLOSED REDUCTION RIGHT WRIST , 1990, [facility]. 2002, [facility], [facility]. Left Wrist Surgery - Family History Known Family History: Positive: Hypertension, Other - CVA father Negative: Blood Disorder - Social History Occupation: Employed Full-time Lives: With Family Alcohol Use: Rare Alcohol Amount: 1 Q 2 MONTHS Substance Use Type: None Smoking Status (MU): Former Smoker Amount Used/How Often: pt states half a pack per day from ages [age] Have You Smoked in the Last Year: No When Did the Patient Quit Smoking/Using Tobacco: QUIT AGE 26 - Immunization History Most Recent Influenza Vaccination: 2012 Most Recent Tetanus Shot: less then 7 yrs Most Recent Pneumonia Vaccination: never Review of Systems Constitutional: Negative Skin: Bruising - Right fifth MCP joint, Other - Small open area dorsum of the right hand Eyes: Negative ENT: Negative Respiratory: Negative Cardiovascular: Negative Gastrointestinal: Negative Genitourinary: Negative Motor: Negative Neurovascular: Negative Musculoskeletal: Arthralgia - Right fifth metacarpal joint Neurological: Negative Psychological: Negative Is Patient Immunocompromised?: No All Other Systems Reviewed And Are Negative: Yes Physical Exam Triage Information Reviewed: Yes Appearance: Well-Appearing, No Pain Distress, Well-Nourished Vital Signs: Initial Vital Signs Temp 98.3 F 11/20/17 13:51 Pulse 94 11/20/17 13:51 Resp 18 11/20/17 13:51 BP 158/103 11/20/17 13:51 Pulse Ox 99 11/20/17 13:51 Vital Signs Reviewed: Yes Eye Exam: Normal Eyes: Positive: Conjunctiva Clear ENT Exam: Normal ENT: Positive: Normal ENT inspection, Hearing grossly normal, Pharynx normal. Negative: Nasal congestion, Trismus, Muffled voice, Hoarse voice Dental Exam: Normal Neck exam: Normal Neck: Positive: Supple, Nontender, No Lymphadenopathy Respiratory Exam: Normal Respiratory: Positive: Chest non-tender, No respiratory distress, No accessory muscle use Cardiovascular Exam: Normal Cardiovascular: Positive: RRR, Pulses Normal, Brisk Capillary Refill Musculoskeletal Exam: Normal Musculoskeletal: Positive: Strength Intact, ROM Intact, No Edema Neurological Exam: Normal Neurological: Positive: Alert, Muscle Tone Normal Psychological Exam: Normal Skin Exam: Other Skin: Positive: Other - Swelling bruising and small open area right fifth MCP joint Diagnostics - Radiology No standard instances Xray Interpretation: Positive (See Comments) Radiology Interpretation Completed By: ED Physician - Right fifth metacarpal fracture with volar angulation, Radiologist Re-Evaluation - Re-Evaluation First Eval Change: Improved - Discussed care and treatment plan with Dr. Aaron Felton. Plan will be to put an ulnar gutter splint and have patient follow on Wednesday Hand/Wrist Course/Dx - Course Course Of Treatment: Rest ice elevation ulnar gutter splint sling hydrocodone for more severe pain ibuprofen for less severe pain follow up with Dr. Felton on Wednesday - Differential Dx/Diagnosis Provider Diagnoses: Right fifth metacarpal (60) angulated fracture, hypertension in poor control Discharge - Sign-Out/Discharge Documenting (check all that apply): Discharge - Discharge Plan Condition: Stable Disposition: HOME Prescriptions: HYDROcodone/ACETAMIN 5-325 MG* [Captiva 5-325 TAB*] 1 tab PO Q6H PRN #20 tab MDD 4 PRN Reason: Pain Scale 6-10 Patient Education Materials: Ibuprofen (By mouth), Hypertension (ED), Boxer Fracture (ED), R.I.C.E. Treatment (ED) Referrals: Aaron Staley MD [Medical Doctor] - 11/22/17 Jabari Mcqueen MD [Primary Care Provider] - 1 Week - Billing Disposition and Condition Condition: STABLE Disposition: HOME
--- NOTE | 2017-11-20 14:38 | RAD ---
Indication: Right hand injury. 4 views of the right hand demonstrates fracture of the distal fifth metacarpal with volar angulation. Proximal and distal interphalangeal joints are otherwise unremarkable. IMPRESSION: Fracture of the distal fifth metacarpal with volar angulation.
[2017-11-20] MEDS ORDERED: Benzoin Compound STICK TOPICAL ONE (15:41)
[2017-11-20] MEDS ORDERED: Benzoin Compound STICK ONE (15:42)
== END 2017-11-20 16:05 | disposition home or self-care (01) ==
LOC: UCEAST 13:47
DX: S62.306A Unspecified fracture of fifth metacarpal bone, right hand, initial encounter for closed fracture (principal); W22.8XXA Striking against or struck by other objects, initial encounter; Y93.9 Activity, unspecified; Y92.9 Unspecified place or not applicable; I10 Essential (primary) hypertension; Z87.891 Personal history of nicotine dependence
CPT/HCPCS: 12001; 99213; G0463

== ENCOUNTER 2017-11-26 09:16 | Day surgery (SDC) | payer BC ==
--- NOTE | 2017-11-25 09:46 | HP ---
PREOPERATIVE HISTORY AND PHYSICAL: DATE OF SURGERY/ADMISSION: 11/26/17 DATE OF OFFICE VISIT/ENCOUNTER: 11/24/17 ATTENDING SURGEON: Jeni López MD* (dictated by SADA Velasquez). PROCEDURE: Right small finger metacarpal open reduction and internal fixation. CHIEF COMPLAINT: Right 5th metacarpal fracture. HISTORY OF PRESENT ILLNESS: This is a 67-year-old male who sustained injury to his right hand on 11/20/17 when out of anger he punched a maple table. He was seen at [facility] where x-rays showed a displaced and angulated fracture of the right 5th metacarpal. There was an associated laceration on the dorsum of the hand which was treated with Steri-Strips. The patient was placed in an ulnar gutter splint and referred to Dr. López for further evaluation and treatment considerations. The patient denies any tingling or numbness. 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 After review of x-rays and evaluation by Dr. López the patient has consented to proceed with surgical intervention for best outcome. PAST MEDICAL HISTORY: 1. Hypertension. 2. History of asthma. 3. Seasonal allergies. 4. History of kidney stones. 5. History of severe constipation. PAST SURGICAL HISTORY: 1. ORIF, left wrist. 2. ORIF, right wrist. 3. Lithotripsy for kidney stones. 4. Tonsillectomy. CURRENT MEDICATIONS: 1. Cialis 5 mg daily. 2. Fish oil Burp-Less 1000 mg daily. 3. Hydrochlorothiazide 12.5 mg daily. 4. Losartan potassium 50 mg daily. 5. Metoprolol succinate ER 50 mg daily. 6. Montelukast sodium 10 mg daily. 7. Multivitamin daily. 8. Vitamin B complex daily. 9. Vitamin B12 1000 mcg daily. 10. Vitamin C 1000 mg daily. 11. Vitamin D3 1000 units daily. 12. Vitamin E 1 tab daily. ALLERGIES: AMLODIPINE causes peripheral edema and neuropathy. FAMILY HISTORY: Hypertension and stroke. 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 He is a former smoker. He quit approximately 4 years ago. Prior to that he smoked half pack a day. He denies recreational drug use. He drinks alcohol on rare occasion. REVIEW OF SYSTEMS: General: Negative for fevers, chills, night sweats, unexplained weight loss or gain. No known anesthesia problems. HEENT: Negative for headache, lightheadedness, syncopal episodes, visual changes. Integumentary: Positive for small wound on dorsum of right hand. Cardiothoracic : Negative for hypertension, chest pain, palpitations or edema. Respiratory: Positive for occasional cough, negative for shortness of breath with exertion or wheezing. GI: Negative for negative for nocturia, urinary frequency, urgency, history of UTIs. Musculoskeletal: Positive for current complaint. Neurological: Negative for paresthesias, numbness, history of seizure or stroke , poor balance, negative for anxiety/depression. Endocrine: Negative for diabetes or thyroid issues. Hematologic: Negative for easy bruising, anemia, bleeding disorders, or history of DVT. Infectious Disease: Negative for history of MRSA, hepatitis C or HIV. PHYSICAL EXAMINATION GENERAL: Well-developed, well-nourished 67-year-old male in no acute distress. VITAL SIGNS: Height 5 feet 11-1/2 inches, weight 208 pounds, blood pressure 150 /98, pulse rate 88. HEENT: Normocephalic, atraumatic. Pupils are equal, round and reactive to light and accommodation. Extraocular movements are intact. NECK: Supple, no palpable lymph nodes. Throat is clear. PULMONARY: Lungs are clear to auscultation bilaterally. No wheezes, rales or rhonchi. CARDIOVASCULAR: Regular rate and rhythm. S1, S2. No murmurs, rubs or gallops. No edema. ABDOMEN: Positive bowel sounds, soft, nontender. NEUROLOGIC: Alert and oriented x3. Cranial II through XII are intact. Sensation is intact to light touch. MUSCULOSKELETAL: On exam of the patient's right hand, there is a moderate amount of swelling in the hand and down into the fingers. He has a small laceration over the dorsal aspect of the hand in the area of the 5th metacarpal. There is no sign of infection. He has quite a bit of ecchymosis scattered throughout the hand dorsally and volarly and into the fingers. He has some decreased range of motion of the fingers, particularly the ring and pinky and deformity on the dorsal aspect of the hand at the 5th metacarpal from the proximal fragment of the fracture. IMAGING STUDIES: X-rays: AP, lateral and oblique of the right hand show a displaced angular fracture of the distal fifth metacarpal. IMPRESSION: Right 5th metacarpal fracture. PLAN: Patient is scheduled to undergo a right small finger metacarpal open reduction and internal fixation with Dr. López on 11/26/17. He will follow up in the office 10 days after surgery for suture removal. He has a supply of Wayne that was prescribed from [facility] and he will plan on using that for postoperative pain management. We will refill that if necessary. SADA VELASQUEZ [id number]/CPS #: [id number] MTDSigifredo
[~2017-11-26 09:16] MED LIST changes: -Acetaminophen TAB* 325 MG PO PRN; +Buffered Lidocaine 0.9% SYRIN* 5 ML/SYR SYRINGE INTRADERM ONE; -Buffered Lidocaine 1% SYR 3ML* 3 ML/SYR SYRINGE INTRADERM ONE; -Buffered Lidocaine 1% SYR 3ML* 3 ML/SYR SYRINGE ONE; -Bupivacaine 0.25% SDV* 30 ML ONE; -Dexamethasone IV* 4 MG/ML 1 ML (4 MG) ONE; -DiMENhydriNATE IV* 50 MG/ML VIAL IV PUSH PRN; -Famotidine IV* 10 MG/ML 2 ML (20 mg) ONE; +Famotidine TAB* 20 MG ONE; +Famotidine TAB* 20 MG PO ONE; -HYDROcodone/ACETAMIN 5-325 MG* 1 TAB ONE; -HYDROcodone/ACETAMIN 5-325 MG* 1 TAB PO PRN; -HYDROmorphone INJ* 1 MG/ML CARPUJECT SYRINGE ONE; -Ketorolac INJ* 30 MG/ML 1 ML VIAL ONE; -Lidocaine 2% PF * 5 ML VIAL ONE; -Midazolam* 1 MG/ML 2 ML VIAL (2 MG) ONE; -Ondansetron INJ* 2 MG/ML VIAL IV PRN; -PROCHLORPERAZINE INJ 5 MG/ML 2 ML VIAL IV PRN; -Propofol* 10 MG/ML 20 ML BTL IV PUSH ONE; -ceFAZolin 2 GM PREMIX (*) 2 GM/50 ML BAG IVPB ONE; -fentaNYL* 50 MCG/ML 2 ML VIAL (100 MCG VIAL) IV PRN; -fentaNYL* 50 MCG/ML 2 ML VIAL (100 MCG VIAL) ONE
[2017-11-26] MEDS ORDERED: ceFAZolin 2 GM PREMIX (*) 2 GM/50 ML BAG IVPB ONE (09:33)
[2017-11-26] MEDS ORDERED: Midazolam* 1 MG/ML 5 ML VIAL (5 MG) ONE (10:11)
[2017-11-26] MEDS ORDERED: fentaNYL* 50 MCG/ML 2 ML VIAL (100 MCG VIAL) ONE (10:11)
[2017-11-26] MEDS ORDERED: Lidocaine 2% PF * 5 ML VIAL ONE (10:12)
[2017-11-26] MEDS ORDERED: Propofol* 10 MG/ML 20 ML BTL IV PUSH ONE (10:12)
[2017-11-26] MEDS ORDERED: Dexamethasone IV* 4 MG/ML 1 ML (4 MG) ONE (10:12)
[2017-11-26] MEDS ORDERED: DiMENhydriNATE IV* 50 MG/ML VIAL ONE (10:12)
[2017-11-26] MEDS ORDERED: Ketorolac INJ* 30 MG/ML 1 ML VIAL ONE (10:12)
[2017-11-26] MEDS ORDERED: Bupivacaine 0.5% SDV PF* 30ML VIAL ONE (10:52)
[2017-11-26] MEDS ORDERED: DiMENhydriNATE IV* 50 MG/ML VIAL IV PUSH PRN (11:34)
[2017-11-26] MEDS ORDERED: Acetaminophen TAB* 325 MG PO PRN (11:34)
[2017-11-26] MEDS ORDERED: oxyCODONE TAB* 5 MG TAB PO PRN (11:34)
[2017-11-26] MEDS ORDERED: Naloxone* 0.4 MG/ML 1 ML VIAL IV PRN (11:34)
[2017-11-26] MEDS ORDERED: HYDROmorphone INJ* 1 MG/ML CARPUJECT SYRINGE IV PRN (11:34)
[2017-11-26 12:24] VITALS: BP 133/91
--- NOTE | 2017-11-26 14:31 | RAD ---
INDICATION: Right small finger ORIF, right fifth finger fracture, injury COMPARISONS: November 20, 2017 TECHNIQUE: Fluoroscopy was provided for a surgical procedure. Total fluoroscopy time is: 2 minutes, 53 seconds FINDINGS: Spot images demonstrate internal fixation of the fifth metacarpal. IMPRESSION: FLUOROSCOPY WAS PROVIDED FOR A SURGICAL PROCEDURE CPT II Codes: G9500
--- NOTE | 2017-11-26 16:33 | OP ---
DATE OF OPERATION: 11/26/17 [facility] DATE OF : 52 SURGEON: Jeni López MD TIRE REPAIRMAN: SADA Velasquez ANESTHESIA: General. PRE-OP DIAGNOSIS: Right 5th metacarpal neck fracture. POST-OP DIAGNOSIS: Right 5th metacarpal neck fracture. OPERATIVE PROCEDURE: Open reduction internal fixation of the right 5th metacarpal. ESTIMATED BLOOD LOSS: Zero. TOURNIQUET TIME: Approximately 15 minutes. INDICATIONS FOR PROCEDURE: Carson is a 67-year-old man who punched a table and injured his right hand. X-ray shows a markedly displaced fracture of the 5th metacarpal neck also a nondisplaced fracture of the 4th metacarpal neck. He presents for closed reduction and intramedullary fixation of the right 5th metacarpal. DESCRIPTION OF PROCEDURE: The patient was brought to the operating room, was given a general anesthetic and placed in the supine position on the operating table with the tourniquet around his right upper arm. The skin of his right upper extremity was prepped and draped in the usual sterile fashion. The hand and forearm were exsanguinated and the tourniquet elevated to 250 mmHg. The fracture was reduced with traction and manipulation and then a K-wire from the through the metacarpal head and neck and down the shaft of the metacarpal. We had previously measured for a 45 mm screw. We over drilled the guidewire and then placed a 45 mm screw. It was positioned and the position of the fracture fragments were checked on the C-arm in the AP and lateral views and found to be satisfactory. There was no motion at the fracture site with motion of the finger. Additionally, the 4th metacarpal fracture was checked with range of motion of the ring finger and there was no motion at the fracture site. It was a nondisplaced impacted fracture. The wound was irrigated and skin edges reapproximated with 4-0 nylon suture. The wound was dressed with Xeroform, 4x4, Webril, and an Eddi wrap. The patient tolerated the procedure well, was brought to the recovery room in good condition. [id number]/[facility] #: [id number] [facility]
== END 2017-11-26 12:40 | disposition home or self-care (01) ==
LOC: OREAST 09:16
PROVIDERS: ATTEND Orthopaedic Surgery
DX: S62.336A Displaced fracture of neck of fifth metacarpal bone, right hand, initial encounter for closed fracture (principal); W22.8XXA Striking against or struck by other objects, initial encounter; Y93.89 Activity, other specified; Y92.9 Unspecified place or not applicable; I10 Essential (primary) hypertension; J45.909 Unspecified asthma, uncomplicated; Z87.891 Personal history of nicotine dependence
CPT/HCPCS: 76000; A9270-GY; C1776; J0690; J1100; J1240; J1885; J2250; J2704; J3010

== ENCOUNTER 2018-05-10 19:14 | Emergency (ER) | payer BC ==
[2018-05-10 20:08] VITALS: BP 141/94
--- NOTE | 2018-05-10 20:21 | ED ---
Respiratory - HPI Summary HPI Summary: has had persistent cough after a cold, cough occasonally productive of yellowish sputum - History of Current Complaint Chief Complaint: UCRespiratory Stated Complaint: COUGH,COLD Time Seen by Provider: 05/10/18 20:13 Hx Obtained From: Patient Onset/Duration: Gradual Onset Initial Severity: Moderate Current Severity: Moderate Pain Intensity: 1 Character: Wheezing, Cough (Productive) Sputum Amount: Scant Sputum Color: Yellow Aggravating Factor(s): Nothing Alleviating Factor(s): Nothing Associated Signs and Symptoms: Negative - Allergy/Home Medications Allergies/Adverse Reactions: Allergies Allergy/AdvReac Type Severity Reaction Status Date / Time No Known Allergies Allergy Verified 05/10/18 20:08 Home Medications: Home Medications Aspirin TAB* [Aspirin 325 MG TAB*] 650 mg PO ONCE PRN 05/10/18 [History Confirmed 05/10/18] Vitamin A CAP* 05/10/18 [History] PMH/Surg Hx/FS Hx/Imm Hx Previously Healthy: Yes Endocrine/Hematology History: Denies: Hx Diabetes, Hx Thyroid Disease Cardiovascular History: Reports: Hx Hypertension Denies: Other Cardiovascular Problems/Disorders Respiratory History: Reports: Hx Asthma - as a teenager, Other Respiratory Problems/Disorders - takes singulair d/t cat allergy Denies: Hx Chronic Obstructive Pulmonary Disease (COPD) GI History: Reports: Other GI Disorders - dehydration apr 2017, constipation, bowel blockage, [place] [facility] [place] Denies: Hx Ulcer History: Reports: Hx Kidney Stones - 2002 lithotripsy/stent & 2014 passed on own, Other Problems/Disorders - HX ED, TAKES CIALIS Musculoskeletal History: Reports: Other Musculoskeletal History - current fx finger, hx right wrist fx and left wrist fx Sensory History: Reports: Hx Contacts or Glasses - glasses, Hx Hearing Aid - bilateral, Hx Hearing Problem Denies: Other Sensory Impairments Opthamlomology History: Reports: Hx Contacts or Glasses - glasses Denies: Other Sensory Impairments Neurological History: Reports: Hx Headaches - prior to his htn diagnosis, Other Neuro Impairments/Disorders - 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 closed reduction right wrist, 1990, [facility] [place]. kidney stone lithotripsy/stent 2002 - [facility] [place]. left wrist [place]IF [place] [facility] [place]x Anesthesia Reactions: No Infectious Disease History: No Infectious Disease History: Denies: Hx Clostridium Difficile, Hx Hepatitis, Hx Human Immunodeficiency Virus (HIV), Hx of Known/Suspected MRSA, Hx Shingles, Hx Tuberculosis, History Other Infectious Disease, Traveled Outside the [place] in Last 30 Days - Family History Known Family History: Positive: Hypertension, Other - CVA father Negative: Blood Disorder - Social History Alcohol Use: Rare Alcohol Amount: 1 Q 2 MONTHS Substance Use Type: Reports: None Smoking Status (MU): Former Smoker Amount Used/How Often: 1/2 ppd for 10 yrs Have You Smoked in the Last Year: No Review of Systems Constitutional: Negative Eyes: Negative ENT: Negative Cardiovascular: Negative Respiratory: Negative Gastrointestinal: Negative Genitourinary: Negative Musculoskeletal: Negative Skin: Negative Neurological: Negative All Other Systems Reviewed And Are Negative: Yes Physical Exam Triage Information Reviewed: Yes Vital Signs On Initial Exam: Initial Vitals Temp Pulse Resp BP Pulse Ox 36.1 C 60 16 141/94 98 05/10/18 20:02 05/10/18 20:02 05/10/18 20:02 05/10/18 20:02 05/10/18 20:02 Vital Signs Reviewed: Yes Appearance: Positive: Well-Appearing, Well-Nourished Skin: Positive: Warm, Dry Eyes: Positive: Normal ENT: Positive: Normal ENT inspection Neck: Positive: Supple Respiratory/Lung Sounds: Positive: Clear to Auscultation Cardiovascular: Positive: Normal Abdomen Description: Positive: Nontender Diagnostics - Vital Signs Vital Signs Temp Pulse Resp BP Pulse Ox 05/10/18 20:02 36.1 C 60 16 141/94 98 - Laboratory Lab Statement: Any lab studies that have been ordered have been reviewed, and results considered in the medical decision making process. Disposition - Diagnoses Provider Diagnoses: Exacerbation of asthma, Hypertension Discharge - Sign-Out/Discharge Documenting (check all that apply): Patient Departure All imaging exams completed and their final reports reviewed: Yes - Discharge Plan Condition: Good Disposition: HOME Prescriptions: Albuterol HFA INHALER* [Ventolin HFA Inhaler*] 2 puff INH Q6H PRN #1 mdi PRN Reason: Cough Patient Education Materials: Asthma (DC) Referrals: Jabari Mcqueen MD [Primary Care Provider] - - Billing Disposition and Condition Condition: GOOD Disposition: Home
[2018-05-10] MEDS ORDERED: Albuterol 2.5 MG/3 ML NEB.SOL* (0.083%) INH ONE (20:22)
== END 2018-05-10 20:50 | disposition home or self-care (01) ==
LOC: UCEAST 19:14
DX: Z87.891 Personal history of nicotine dependence (principal)
CPT/HCPCS: 99212; G0463

== ENCOUNTER 2019-01-22 15:44 | Emergency (ER) | payer BC ==
[2019-01-22 15:59] VITALS: BP 166/97
--- NOTE | 2019-01-22 16:09 | UC ---
Skin Complaint HPI - HPI Summary HPI Summary: REports removing a non-engorged tick at R upper thigh approx 12 hrs ago. denies any other symptoms. he is concerned about lyme. - History of Current Complaint Chief Complaint: UCSkin Time Seen by Provider: 01/22/19 15:56 Stated Complaint: TICK BITE Hx Obtained From: Patient Onset/Duration: Sudden Onset Pain Intensity: 0 Pain Scale Used: 0-10 Numeric - Allergy/Home Medications Allergies/Adverse Reactions: Allergies Allergy/AdvReac Type Severity Reaction Status Date / Time No Known Allergies Allergy Verified 01/22/19 15:59 PMH/Surg Hx/FS Hx/Imm Hx Cardiovascular History: Hypertension Respiratory History: Asthma - Surgical History Surgical History: Yes Surgery Procedure, Year, and Place: tonsillectomy as a child - [place]. closed reduction right wrist, 1990, [facility] [place]. kidney stone lithotripsy/stent 2002 - [facility] [place]. left wrist ORIF 2016 [facility] [place] - Family History Known Family History: Positive: Hypertension, Other - CVA father Negative: Blood Disorder - Social History Alcohol Use: Rare Alcohol Amount: 1 Q 2 MONTHS Substance Use Type: None Smoking Status (MU): Former Smoker Amount Used/How Often: 1/2 ppd for 10 yrs Have You Smoked in the Last Year: No When Did the Patient Quit Smoking/Using Tobacco: 1977 - Immunization History Most Recent Influenza Vaccination: 2012 Most Recent Tetanus Shot: less then 7 yrs Most Recent Pneumonia Vaccination: never Review of Systems All Other Systems Reviewed And Are Negative: Yes Constitutional: Negative: Fever Skin: Positive: Rash - area of redness from tick bite per pt Respiratory: Positive: Negative Cardiovascular: Positive: Negative Musculoskeletal: Negative: Arthralgia, Myalgia Neurological: Negative: Headache Physical Exam Triage Information Reviewed: Yes Appearance: Well-Appearing Vital Signs: Initial Vital Signs Temp 97.9 F 01/22/19 15:51 Pulse 83 01/22/19 15:51 Resp 16 01/22/19 15:51 BP 166/97 01/22/19 15:51 Pulse Ox 96 01/22/19 15:51 Vital Signs Reviewed: Yes Respiratory Exam: Normal Cardiovascular Exam: Normal Skin: Positive: Significant Lesion(s) - area of irritation surrounding tick bite , approx 5mm Course/Dx - Course Course Of Treatment: Tick bite, non engorged, he self removed w/ no complication at L upper thigh. Reviewed pros and cons and CDC recommendations. He has chosen to move forward w / prophylaxis. bp elevated and will discuss w/ pcp. - Differential Diagnoses - Skin Complaint Differential Diagnoses: Cellulitis, Urticaria, Viral Exanthem - Diagnoses Provider Diagnosis: Tick bite Discharge - Sign-Out/Discharge Documenting (check all that apply): Patient Departure All imaging exams completed and their final reports reviewed: No Studies - Discharge Plan Condition: Good Disposition: HOME Prescriptions: DOXYcycline CAP(*) [DOXYcycline 100MG CAP(*)] 100 mg PO BID 1 Days #2 cap Patient Education Materials: Tick Bite (ED) Referrals: Jabari Mcqueen MD [Primary Care Provider] - Additional Instructions: We discussed the pros and cons of starting prophylaxis when not indicated and you have chosen to start medication. - Billing Disposition and Condition Condition: GOOD Disposition: Home
== END 2019-01-22 16:45 | disposition home or self-care (01) ==
LOC: UCEAST 15:44
DX: T63.481A Toxic effect of venom of other arthropod, accidental (unintentional), initial encounter (principal); Y92.9 Unspecified place or not applicable; I10 Essential (primary) hypertension; Z87.891 Personal history of nicotine dependence
CPT/HCPCS: 99212; G0463